=== PATIENT | male | born 1980 | race Caucasian/White ===

== ENCOUNTER → 2016-08-25 | Outpatient (CLI) | payer OTHER ==
[~2016-08-25] MED LIST: IBUP200C PO; MOBI7.5T10 PO; NAPR250T2 PO; augmentin PO; neurontin PO; oxycodone PO
--- NOTE | 2016-09-03 00:58 | ECWPNPC ---
PATIENT NAME: KRISTA SHOOK : 1980 GENDER: MALE VISIT DATE: 08/25/2016 DISCHARGE DATE: 08/25/16 1620 VISIT LOCKED DATE TIME: PHYSICIAN: SARA ASHRAF RESOURCE: SARA ASHRAF REASON FOR APPOINTMENT 1. LOW BACK PAIN HISTORY OF PRESENT ILLNESS HISTORY OF PRESENT ILLNESS: PAIN THE PATIENT DESCRIBES THE PAIN... 36 YEAR OLD MALE PATIENT WITH HISTORY OF CHRONIC LOW BACK PAIN. PATIENT DESCRIBES THE PAIN ACHING, BURNING, SHARP, STABBING, THROBBING, SHOOTING, AND HAVING IT ALL THE TIME WITH A PAIN SCORE OF 6/10. PATIENT IS GOING TO HAVE THE DCS TRIAL DONE ON 09/15/15. PATIENT IS CURRENTLY USING IBUPROFEN, TYLENOL, AND TRAMADOL WHICH THE PATIENT REPORTS HELPS WITH PAIN MANAGEMENT. AT THIS TIME THE PATIENT STATES THAT ANY PHYSICAL ACTIVITY INCREASES THE PAIN IN HIS LOWER BACK AND AT THIS TIME IT IS DIFFICULT TO FIND RELIEF FROM THE INJECTION. PATIENT DENIES UNEXPLAINABLE WEIGHT LOSS, FEVER, CHILLS, NEW CHANGES ON HIS URINARY OR BOWEL CONTROL. FALL RISK SCREENING: SCREENING :NO FALLS IN THE PAST YEAR CURRENT MEDICATIONS TAKING TRAMADOL HCL 50 MG TABLET 1 TABLET NEEDED ORALLY EVERY 8 HRS FOR PAIN MDD2 TAKING IBUPROFEN 800 MG TABLET 1 TABLET NEEDED ORALLY TWICE DAILY NEEDED TAKING VOLTAREN 25 MG TABLET DELAYED RELEASE 1 TABLET ORALLY BID NOT-TAKING GABAPENTIN 600 MG TABLET 1 TABLET ORALLY BID, NOTES: 1 WEEK AGO MEDICATION LIST REVIEWED AND RECONCILED WITH THE PATIENT PAST MEDICAL HISTORY GERD ALLERGIES SULFA (FOR ALLERGY USE ONLY): HIVES: ALLERGY SURGICAL HISTORY APPENDECTOMY AUG 2013 FAMILY HISTORY NO FAMILY HISTORY DOCUMENTED. SOCIAL HISTORY GENERAL: TOBACCO USE ARE YOU A:NONSMOKER LEARNING BARRIERS / SPECIAL NEEDS ORIENTED TO PLAN OF CARE: PATIENT, PAIN MANAGEMENT PATIENT, ORIENTED TO PLAN OF CARE: PATIENT, PAIN MANAGEMENT PATIENT. NEW PATIENT PAIN DIARY TODAY'S VISITNOTES FROM 0-10, WHAT LEVEL IS YOUR PAIN TODAY?0 PAIN CLINIC PFS, CLERGY, PUBLIC HEALTH REFERRALS PFS REFERRAL NEEDED?NO CLERGY REFERRAL NEEDED?NO PUBLIC HEALTH REFERRAL NEEDED?NO WAS THE PROVIDER NOTIFIED OF ANY PERTINENT INFO?NO PFS REFERRAL NEEDED?NO CLERGY REFERRAL NEEDED?NO PUBLIC HEALTH REFERRAL NEEDED?NO WAS THE PROVIDER NOTIFIED OF ANY PERTINENT INFO?NO HOSPITALIZATION/MAJOR DIAGNOSTIC PROCEDURE NO HOSPITALIZATION HISTORY. REVIEW OF SYSTEMS CONSTITUTIONAL: ANY CHANGE IN YOUR MEDICAL CONDITION? NO . CHILLS NO . FEVER NO . INFECTION: DO YOU HAVE NEW INFECTIONS? NO . DO YOU HAVE HISTORY OF MRSA? NO . MUSCULOSKELETAL: ANY NEW PATTERNS OF PAIN OR NUMBNESS? NO . GASTROENTEROLOGY: ANY NEW CHANGE IN BOWEL CONTROL? NO . GENITOURINARY: ANY NEW CHANGE IN BLADDER CONTROL? NO . IS THERE A CHANCE YOU COULD BE ? NO . HEMATOLOGY/LYMPH: DO YOU TAKE ANY BLOOD THINNERS? (FOR EXAMPLE- COUMADIN, PLAVIX, AGGRENOX, PLATEL, PRADAXA, OR XARELTO) NO . WHEN WAS YOUR LAST DOSE? DATE: TIME: . NEUROLOGY: HAVE YOU FALLEN IN THE PAST 6 MONTHS? NO . ANY NEW EXTREMITY NUMBNESS OR WEAKNESS? NO . CARDIOLOGY: DO YOU HAVE A PACEMAKER OR DEFIBRILLATOR? NO . RESPIRATORY: HAVE YOU BEEN SICK IN THE PAST WEEK? NO . FEVER NO . FLU LIKE SYMPTOMS? NO . COUGH NO . INTEGUMENTARY: DO YOU HAVE ANY RASHES OR OPEN SORES? NO . ALLERGIC/IMMUNO: ARE YOU ALLERGIC TO SHELLFISH OR IV DYE? NO . ANY NEW ALLERGIES? NO . PSYCHIATRIC: DO YOU HAVE THOUGHTS OF HURTING YOURSELF OR SOMEONE ELSE? NO . ARE YOU ABUSED, NEGLECTED, OR IN AN UNSAFE ENVIRONMENT? NO . ENDOCRINOLOGY: ARE YOU DIABETIC? NO . OTHER: DO YOU NEED ANY PRESCRIPTIONS? NO . IF YES, PLEASE LIST: ____ . ANY NEW PROBLEMS WITH YOUR MEDICATIONS? NO . WHEN DID YOU LAST EAT? ____ . WHEN DID YOU LAST DRINK? ____ . WHAT DID YOU LAST DRINK? ____ . NAME OF PERSON DRIVING YOU HOME? ____ . DO YOU HAVE ANY OTHER QUESTIONS OR CONCERNS NO . REVIEWED BY: PROVIDER: SARA ASHRAF MD . VITAL SIGNS WT 215 LBS, HT 73 IN, BMI 28.36 INDEX, BP 120/74 MM HG, HR 61 /MIN, RR 16 /MIN, TEMP 97.6 F, OXYGEN SAT % 98%, NA INITIALS SC 15:08, REVIEWED BY: STEPHEN [id number]. EXAMINATION : PATIENT IS ALERT O X 3 AND COOPERATIVE. THERE IS TENDERNESS IN THE LOWER BACK AND THE PARASPINAL MUSCLE GROUP SPECIALLY ON THE RIGHT SIDE. LEFT LEG IS A LITTLE WEAKER THEN THE RIGHT AT FLEXION. MRI OF THE LUMBOSACRAL SPINE DONE ON 08/20/2015 IS SHOWING FACET ARTHROPATHY CHANGES SPINAL STENOSIS THIS EXTRUSION AT L5-S1. LUNGS CLEAR. ASSESSMENTS INTERVERTEBRAL DISC DISORDERS WITH RADICULOPATHY, LUMBAR REGION - M51.16 (PRIMARY) INTERVERTEBRAL DISC DISORDERS WITH RADICULOPATHY, LUMBOSACRAL REGION - M51.17 TREATMENT INTERVERTEBRAL DISC DISORDERS WITH RADICULOPATHY, LUMBAR REGION START KEFLEX CAPSULE, 500 MG, 1 CAPSULE, ORALLY, THREE TIMES DAILY, 10 DAY(S), 30, REFILLS 0 REFILL TRAMADOL HCL TABLET, 50 MG, 1 TABLET NEEDED, ORALLY, EVERY 8 HRS FOR PAIN MDD2, 30 DAY(S), 50, REFILLS 0 NOTES: WE DISCUSSED SEVERAL ISSUES WITH MR. PATEL'S PAIN MANAGEMENT CASE. AT THIS TIME THE PATIENT WILL CONTINUE WITH THE SAME MEDICATION REGIME BEFORE. PATIENT WILL RECEIVE AN ANTIBIOTIC TO BE USED AFTER THE DCS TRIAL ONCE THE PATIENT IS HOME. WE DISCUSSED IN DETAIL WHAT TO EXPECT FROM THE TRIAL. PATIENT IS AWARE HE IS STAYING ONE NIGHT IN THE HOSPITAL AND NEEDS TO DISCONTINUE HIS PAIN MEDICATIONS DURING THE TRIAL. MR. SHOOK WILL RETURN THE FOLLOWING THURSDAY TO HAVE THE LEADS PULLED. PATIENT WAS ADVISED TO CALL WITH ANY QUESTIONS OR CONCERNS ABOUT THE TRIAL. INSTRUCTIONS WERE GIVEN, QUESTIONS WERE ANSWERED, PATIENT REPORTS UNDERSTANDING AND AGREES WITH THE PLAN. I, LADI BERNARDO, DOCUMENTED THE ABOVE INFORMATION ACTING A SCRIBE FOR DR. ASHRAF. I HAVE REVIEWED THE ABOVE DOCUMENT, WRITTEN BY LADI MEMBRENO AND I VERIFY THAT IT IS ACCURATE. PROCEDURE CODES FA211 ESTABILISHED PATIENT [facility] FACILITY CHARGE G8427 DOC MEDS VERIFIED W/PT OR RE G6524 PAIN ASSESS POS TOOL F/U PLAN DOC FOLLOW UP LEAD PULL AFTER TRIAL ELECTRONICALLY SIGNED BY SARA ASHRAF MD ON 09/02/2016 AT 08:22 PM EST DISCLAIMER : THIS IS A VISIT SUMMARY EXTRACTED FROM THE [employer] CHART. IT IS NOT A COPY OF THE [employer] PROGRESS NOTE. MTDD
== END ==
LOC: M PAIN 15:00
PROVIDERS: ATTEND Anesthesiology
DX: M51.16 Intervertebral disc disorders with radiculopathy, lumbar region (principal); M51.17 Intervertebral disc disorders with radiculopathy, lumbosacral region; Z79.891 Long term (current) use of opiate analgesic; Z79.899 Other long term (current) drug therapy; Z88.2 Allergy status to sulfonamides

== ENCOUNTER 2016-09-15 09:19 | Day surgery (SDC) | payer OTHER ==
[2016-09-15] VITALS (7 sets, daily range): BP systolic 109–136; BP diastolic 63–74
[~2016-09-15] VITALS: Ht 182.9 cm; Wt 95.3 kg
[~2016-09-15 09:19] MED LIST changes: +TRAM50TA2 PO
[2016-09-15] MEDS ORDERED: ceFAZolin SOD 1 GM in D5W MINI-BAG PLUS 50 ML IV ONE (09:30)
[2016-09-15] MEDS ORDERED: LR 1,000 ML IV SCH ×2 (09:30→13:15)
[2016-09-15] MEDS ORDERED: fentaNYL 100 MCG/2 ML INJECTION (J3010) As Ordered ONE ×2 (10:04→12:55)
[2016-09-15] MEDS ORDERED: LIDOCAINE 2% INJ 100 MG/5 ML SDV (FOR ANES.) As Ordered ONE (10:04)
[2016-09-15] MEDS ORDERED: MIDAZOLAM INJ 2 MG/2 ML VIAL (J2250) As Ordered ONE (10:04)
[2016-09-15] MEDS ORDERED: PROPOFOL 200 MG/20 ML VIAL As Ordered ONE (10:04)
[2016-09-15] MEDS ORDERED: DICL75TA PO (10:33)
[2016-09-15] MEDS ORDERED: IBUP800T23 PO (10:33)
[2016-09-15] MEDS ORDERED: LIDOCAINE W/EPINEPHRINE 1% 20ML VIAL As Ordered ONE (10:52)
[2016-09-15] MEDS ORDERED: LIDOCAINE W/EPINEPHRINE 1% 20ML VIAL XX ONE (11:44)
[2016-09-15] MEDS ORDERED: ONDANSETRON 4MG/2ML VIAL (J2405) As Ordered ONE (12:40)
[2016-09-15] MEDS: fentaNYL 100 MCG/2 ML INJECTION (J3010) IV PRN ×5 (12:55→14:11)
[2016-09-15] MEDS ORDERED: NORCO, ANEXSIA 5/325MG TABLET (HYDROcodone/ACETAMINOPHEN) PO PRN (13:15)
[2016-09-15] MEDS ORDERED: ONDANSETRON 4MG/2ML VIAL (J2405) IV PRN (13:15)
--- NOTE | 2016-09-15 14:18 | REP ---
Partial thoracic spine series: Four views. History: Dorsal column stimulator lead placement. 8 minutes 30 seconds of fluoroscopy time is reported. Findings: A sequence of four fluoroscopically obtained intraprocedural spot radiographs of the thoracic spine document dorsal column stimulator placement. Signed by Willian Aylaa MD 09/15/2016 03:20 P
[2016-09-15] MEDS: ceFAZolin SOD 1 GM in D5W MINI-BAG PLUS 50 ML IV SCH (15:42)
[2016-09-15] MEDS: NORCO, ANEXSIA 5/325MG TABLET (HYDROcodone/ACETAMINOPHEN) PO PRN ×2 (15:43→21:59)
[2016-09-15] MEDS: traMADol 50 MG TAB PO PRN (19:16)
[2016-09-16] VITALS: BP 130/57
[2016-09-16] MEDS: ceFAZolin SOD 1 GM in D5W MINI-BAG PLUS 50 ML IV SCH (01:56)
[2016-09-16] MEDS: traMADol 50 MG TAB PO PRN ×2 (01:57→08:44)
[2016-09-16 04:00] VITALS: BP 113/59
[2016-09-16] MEDS: NORCO, ANEXSIA 5/325MG TABLET (HYDROcodone/ACETAMINOPHEN) PO PRN (04:57)
[2016-09-16 08:00] VITALS: BP 109/65
[2016-09-16 09:14] VITALS: BP 109/65
--- NOTE | 2016-09-29 11:16 | RO ---
DATE OF PROCEDURE: 09/15/2016 PREPROCEDURE DIAGNOSIS: Lumbar radiculopathy. POSTPROCEDURE DIAGNOSIS: Lumbar radiculopathy. PROCEDURE: Spinal column stimulator trial. ANESTHESIA: Local with monitored anesthesia care. SURGEON: Emanuel Dave MD CARE PROCESS MANAGER: DESCRIPTION OF PROCEDURE: Mr. Delgado is a 36-year-old male patient with a history of chronic low back and leg pain. I evaluated the patient and reviewed the chart. We both agree on doing a spinal column stimulator trial today. The patient has tried medication management, interventional options, and the pain has persisted. The patient denies unexplained weight loss, fevers, chills, changes in his urinary or bowel control. After consent was taken, the patient was brought to the operating room and laid in the prone position. Thoracolumbar area was cleaned with Betadine solution and draped aseptically. Procedure was done under sterile conditions. Under fluoroscopic guidance, target was selected at the interlaminar level of T12-L1. Lidocaine was used to numb the skin and the subcutaneous tissue below it. A Epimed Tuohy needle, 17-gauge was advanced until the right lamina of L1 was touched and then by loss of resistance technique. The epidural space was reached 7 cm deep into the skin by loss of resistance technique. A 16 contact lead from [employer] was advanced in the posteromedial aspect of the epidural space at the level of T6 and T7. A decision was made to place a second lead. Target point was selected at the intralaminar level of L1-2. Lidocaine was used to numb the skin and the subcutaneous tissue below it. A second Epimed needle was advanced until the right lamina of L2 was touched and then by loss of resistance technique. The epidural space was reached 7 cm deep into the skin by loss of resistance technique. A second 16 contact lead from [employer] was advanced and placed parallel to the first one at the level of C6-C7. We attached the extension cables to the leads. They were attached to the computer system from [employer], and we started to do programming. This was a simple program of 30 minutes where we changed the contact needles, we changed the impedance, we changed the voltage. Stimulation was done to the patient and the patient agrees on the position of the leads. Final position was at the level of C6, C7, and T8. AP and lateral views were taken for future reference. Extension cables were removed. Stylets were removed. The leads were attached to the skin of the patient. The patient was sent to the recovery room where he was moving his extremities and doing well. There were no complications during the procedure. Trial will start today.
== END 2016-09-16 09:45 | disposition home or self-care (01) ==
LOC: M SDC 09:19 → M PED 13:45 → M SDC 09-16 09:45
PROVIDERS: ATTEND Anesthesiology
DX: M54.16 Radiculopathy, lumbar region (principal); Z88.2 Allergy status to sulfonamides; Z79.1 Long term (current) use of non-steroidal anti-inflammatories (NSAID)
CPT/HCPCS: 63650; 77002; 96374; 96376; C1897; J0690; J2250; J2405; J3010

== ENCOUNTER → 2016-09-19 | Outpatient (CLI) | payer OTHER ==
[~2016-09-19] MED LIST changes: +DICL75TA PO; +IBUP800T23 PO
--- NOTE | 2016-09-19 12:55 | REP ---
Partial lumbar spine series: 17 views. History: Dorsal column stimulator lead pole. 24 seconds of fluoroscopy time is reported. Findings: A sequence of 17 fluoroscopically obtained intraprocedural spot radiographs obtained with last minute hold technique document dorsal column stimulator lead manipulation and placement. Signed by Willian Ayala MD 09/19/2016 07:25 P
--- NOTE | 2016-09-27 00:31 | ECWPNPC ---
PATIENT NAME: KRISTA SHOOK : 1980 GENDER: MALE VISIT DATE: 09/19/2016 DISCHARGE DATE: 09/19/16 1146 VISIT LOCKED DATE TIME: PHYSICIAN: SARA ASHRAF RESOURCE: SARA ASHRAF REASON FOR APPOINTMENT 1. LOW BACK PAIN HISTORY OF PRESENT ILLNESS HISTORY OF PRESENT ILLNESS: PAIN THE PATIENT DESCRIBES THE PAIN... 36 YEAR OLD MALE PATIENT WITH HISTORY OF CHRONIC BACK PAIN. PATIENT DESCRIBES THE PAIN ACHING, SHARP, AND THROBBING WITH A PAIN SCORE OF 2/10. PATIENT RECEIVED THE DCS TRIAL ON THURSDAY AND REPORTS HAVING 80% RELIEF FROM THE TRIAL. MR. PATEL STATES THAT HE HAS GREAT RELIEF IN THE MORNING AND IS ABLE TO GET UP IN THE MORNINGS MUCH EASIER THEN BEFORE. PATIENT REPORTS NOT USING ANY PAIN MEDICATION THROUGHOUT THE TRIAL AND BELIEVES THE PERMANENT WILL GREATLY BENEFIT HIS CONDITION. PATIENT DENIES UNEXPLAINABLE WEIGHT LOSS, FEVER, CHILLS, NEW CHANGES ON HIS URINARY OR BOWEL CONTROL. FALL RISK SCREENING: SCREENING :NO FALLS IN THE PAST YEAR CURRENT MEDICATIONS TAKING IBUPROFEN 800 MG TABLET 1 TABLET NEEDED ORALLY TWICE DAILY NEEDED TAKING KEFLEX 500 MG CAPSULE 1 CAPSULE ORALLY THREE TIMES DAILY TAKING TRAMADOL HCL 50 MG TABLET 1 TABLET NEEDED ORALLY EVERY 8 HRS FOR PAIN MDD2 NOT-TAKING VOLTAREN 25 MG TABLET DELAYED RELEASE 1 TABLET ORALLY BID NOT-TAKING CYCLOBENZAPRINE HCL 10 MG TABLET 1 TABLET ORALLY THREE TIMES A DAY DISCONTINUED GABAPENTIN 600 MG TABLET 1 TABLET ORALLY BID, NOTES: 1 WEEK AGO MEDICATION LIST REVIEWED AND RECONCILED WITH THE PATIENT PAST MEDICAL HISTORY GERD ALLERGIES SULFA (FOR ALLERGY USE ONLY): HIVES: ALLERGY SURGICAL HISTORY APPENDECTOMY AUG 2013 FAMILY HISTORY NO FAMILY HISTORY DOCUMENTED. SOCIAL HISTORY GENERAL: TOBACCO USE ARE YOU A:NONSMOKER LEARNING BARRIERS / SPECIAL NEEDS ORIENTED TO PLAN OF CARE: PATIENT, PAIN MANAGEMENT PATIENT, ORIENTED TO PLAN OF CARE: PATIENT, PAIN MANAGEMENT PATIENT. NEW PATIENT PAIN DIARY TODAY'S VISITNOTES FROM 0-10, WHAT LEVEL IS YOUR PAIN TODAY?0 PAIN CLINIC PFS, CLERGY, PUBLIC HEALTH REFERRALS PFS REFERRAL NEEDED?NO CLERGY REFERRAL NEEDED?NO PUBLIC HEALTH REFERRAL NEEDED?NO WAS THE PROVIDER NOTIFIED OF ANY PERTINENT INFO?NO PFS REFERRAL NEEDED?NO CLERGY REFERRAL NEEDED?NO PUBLIC HEALTH REFERRAL NEEDED?NO WAS THE PROVIDER NOTIFIED OF ANY PERTINENT INFO?NO HOSPITALIZATION/MAJOR DIAGNOSTIC PROCEDURE NO HOSPITALIZATION HISTORY. REVIEW OF SYSTEMS CONSTITUTIONAL: ANY CHANGE IN YOUR MEDICAL CONDITION? NO . CHILLS NO . FEVER NO . INFECTION: DO YOU HAVE NEW INFECTIONS? NO . DO YOU HAVE HISTORY OF MRSA? NO . MUSCULOSKELETAL: ANY NEW PATTERNS OF PAIN OR NUMBNESS? NO . GASTROENTEROLOGY: ANY NEW CHANGE IN BOWEL CONTROL? NO . GENITOURINARY: ANY NEW CHANGE IN BLADDER CONTROL? NO . IS THERE A CHANCE YOU COULD BE ? NO . HEMATOLOGY/LYMPH: DO YOU TAKE ANY BLOOD THINNERS? (FOR EXAMPLE- COUMADIN, PLAVIX, AGGRENOX, PLATEL, PRADAXA, OR XARELTO) NO . WHEN WAS YOUR LAST DOSE? DATE: TIME: . NEUROLOGY: HAVE YOU FALLEN IN THE PAST 6 MONTHS? NO . ANY NEW EXTREMITY NUMBNESS OR WEAKNESS? NO . CARDIOLOGY: DO YOU HAVE A PACEMAKER OR DEFIBRILLATOR? NO . RESPIRATORY: HAVE YOU BEEN SICK IN THE PAST WEEK? NO . FEVER NO . FLU LIKE SYMPTOMS? NO . COUGH NO . INTEGUMENTARY: DO YOU HAVE ANY RASHES OR OPEN SORES? NO . ALLERGIC/IMMUNO: ARE YOU ALLERGIC TO SHELLFISH OR IV DYE? NO . ANY NEW ALLERGIES? NO . PSYCHIATRIC: DO YOU HAVE THOUGHTS OF HURTING YOURSELF OR SOMEONE ELSE? NO . ARE YOU ABUSED, NEGLECTED, OR IN AN UNSAFE ENVIRONMENT? NO . ENDOCRINOLOGY: ARE YOU DIABETIC? NO . OTHER: DO YOU NEED ANY PRESCRIPTIONS? NO . IF YES, PLEASE LIST: ____ . ANY NEW PROBLEMS WITH YOUR MEDICATIONS? NO . WHEN DID YOU LAST EAT? ____ . WHEN DID YOU LAST DRINK? ____ . WHAT DID YOU LAST DRINK? ____ . NAME OF PERSON DRIVING YOU HOME? ____ . DO YOU HAVE ANY OTHER QUESTIONS OR CONCERNS NO . REVIEWED BY: PROVIDER: SARA ASHRAF MD . VITAL SIGNS WT 220 LBS, HT 73 IN, BMI 29.02 INDEX, BP 138/82 MM HG, HR 68 /MIN, RR 16 /MIN, TEMP 96.0 F, OXYGEN SAT % 98, NA INITIALS TL 0937, REVIEWED BY: CM. EXAMINATION : PATIENT IS ALERT O X 3 AND COOPERATIVE. THERE IS TENDERNESS IN THE LOWER BACK AND THE PARASPINAL MUSCLE GROUP SPECIALLY ON THE RIGHT SIDE. LEFT LEG IS A LITTLE WEAKER THEN THE RIGHT AT FLEXION. MRI OF THE LUMBOSACRAL SPINE DONE ON 08/20/2015 IS SHOWING FACET ARTHROPATHY CHANGES SPINAL STENOSIS THIS EXTRUSION AT L5-S1. LEADS WERE PULLED OUT INTACT. 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 SHOOK'S PAIN MANAGEMENT CASE. AT THIS TIME THE PATIENT WILL CONTINUE WITH THE SAME MEDICATION REGIME BEFORE THE TRIAL. PATIENT STATES HAVING OVER 80% PAIN RELIEF FROM THE DCS TRIAL AND WOULD LIKE TO MOVE FORWARD WITH THE PERMANENT SOON POSSIBLE. PATIENT WILL RETURN TO THE CLINIC FOR PRE-OP PAPER AFTER AUTHORIZATION IS OBTAINED FOR THE PERMANENT. INSTRUCTIONS WERE GIVEN, QUESTIONS WERE ANSWERED, PATIENT REPORTS UNDERSTANDING AND AGREES WITH THE PLAN. I, LADI BERNARDO, DOCUMENTED THE ABOVE INFORMATION ACTING A SCRIBE FOR DR. ASHRAF. I HAVE REVIEWED THE ABOVE DOCUMENT, WRITTEN BY LADI BERNARDO SCRIBDilshad AND I VERIFY THAT IT IS ACCURATE. DIAGNOSTIC IMAGING [facility] FLUORO GUIDANCE (PAIN)[id number] PREVENTIVE MEDICINE PAIN CLINIC TEACHING: PROCEDURE TEACHING POST REMOVAL DORSAL COLUMN STIUMLATOR TRIAL LEADS INSTRUCTIONS REVIEWED WITH PT. VERBALIZED UNDERSTANDING.. FOLLOW UP 2 WEEKS ELECTRONICALLY SIGNED BY SARA ASHRAF MD ON 09/26/2016 AT 01:28 PM EST DISCLAIMER : THIS IS A VISIT SUMMARY EXTRACTED FROM THE [employer] CHART. IT IS NOT A COPY OF THE [employer] PROGRESS NOTE. [facility]
== END ==
LOC: M PAIN 09:40
PROVIDERS: ATTEND Anesthesiology
DX: G89.29 Other chronic pain (principal); M54.5 Low back pain; K21.9 Gastro-esophageal reflux disease without esophagitis; Z88.2 Allergy status to sulfonamides; Z79.891 Long term (current) use of opiate analgesic; Z79.1 Long term (current) use of non-steroidal anti-inflammatories (NSAID); Z79.899 Other long term (current) drug therapy

== ENCOUNTER → 2016-10-01 | Outpatient (CLI) | payer OTHER ==
--- NOTE | 2016-10-11 00:23 | ECWPNPC ---
PATIENT NAME: KRISTA SHOOK : 1980 GENDER: MALE VISIT DATE: 10/01/2016 DISCHARGE DATE: 10/01/16 1620 VISIT LOCKED DATE TIME: PHYSICIAN: SARA ASHRAF RESOURCE: SARA ASHRAF REASON FOR APPOINTMENT 1. LOW BACK PAIN HISTORY OF PRESENT ILLNESS HISTORY OF PRESENT ILLNESS: PAIN THE PATIENT DESCRIBES THE PAIN... 36 YEAR OLD MALE PATIENT WITH HISTORY OF CHRONIC LOW BACK PAIN. PATIENT DESCRIBES THE PAIN ACHING, BURNING, SHARP, STABBING, THROBBING, SHOOTING, AND HAVING IT ALL THE TIME WITH A PAIN SCORE OF 6/10. PATIENT IS MOVING FORWARD WITH THE DCS PERMANENT ON 10/13/16. PATIENT IS CURRENTLY USING IBUPROFEN, TYLENOL, AND TRAMADOL WHICH THE PATIENT REPORTS HELPS WITH PAIN MANAGEMENT. AT THIS TIME THE PATIENT STATES THAT ANY PHYSICAL ACTIVITY INCREASES THE PAIN IN HIS LOWER BACK AND AT THIS TIME IT IS DIFFICULT TO FIND RELIEF FROM THE INJECTION. PATIENT DENIES UNEXPLAINABLE WEIGHT LOSS, FEVER, CHILLS, NEW CHANGES ON HIS URINARY OR BOWEL CONTROL. FALL RISK SCREENING: SCREENING :NO FALLS IN THE PAST YEAR CURRENT MEDICATIONS TAKING IBUPROFEN 800 MG TABLET 1 TABLET NEEDED ORALLY TWICE DAILY NEEDED TAKING TRAMADOL HCL 50 MG TABLET 1 TABLET NEEDED ORALLY EVERY 8 HRS FOR PAIN MDD2 TAKING VOLTAREN 25 MG TABLET DELAYED RELEASE 1 TABLET ORALLY TWICE DAILY NEEDED NOT-TAKING CYCLOBENZAPRINE HCL 10 MG TABLET 1 TABLET ORALLY THREE TIMES A DAY DISCONTINUED KEFLEX 500 MG CAPSULE 1 CAPSULE ORALLY THREE TIMES DAILY MEDICATION LIST REVIEWED AND RECONCILED WITH THE PATIENT PAST MEDICAL HISTORY GERD ALLERGIES SULFA (FOR ALLERGY USE ONLY): HIVES: ALLERGY SURGICAL HISTORY APPENDECTOMY AUG 2013 FAMILY HISTORY NO FAMILY HISTORY DOCUMENTED. SOCIAL HISTORY GENERAL: TOBACCO USE ARE YOU A:NONSMOKER LEARNING BARRIERS / SPECIAL NEEDS ORIENTED TO PLAN OF CARE: PATIENT, PAIN MANAGEMENT PATIENT, ORIENTED TO PLAN OF CARE: PATIENT, PAIN MANAGEMENT PATIENT. NEW PATIENT PAIN DIARY TODAY'S VISITNOTES FROM 0-10, WHAT LEVEL IS YOUR PAIN TODAY?0 PAIN CLINIC PFS, CLERGY, PUBLIC HEALTH REFERRALS PFS REFERRAL NEEDED?NO CLERGY REFERRAL NEEDED?NO PUBLIC HEALTH REFERRAL NEEDED?NO WAS THE PROVIDER NOTIFIED OF ANY PERTINENT INFO?NO PFS REFERRAL NEEDED?NO CLERGY REFERRAL NEEDED?NO PUBLIC HEALTH REFERRAL NEEDED?NO WAS THE PROVIDER NOTIFIED OF ANY PERTINENT INFO?NO HOSPITALIZATION/MAJOR DIAGNOSTIC PROCEDURE NO HOSPITALIZATION HISTORY. REVIEW OF SYSTEMS CONSTITUTIONAL: ANY CHANGE IN YOUR MEDICAL CONDITION? YES, FELL OFF LADDER THE BEGINNING OF SEP. HAD XRAYS AT [employer] (-). SEEN BY PT WHO DETERMINED HE HAD A ROTATOR CUFF TEAR BACK OF RIGHT SHOULDER . CHILLS NO . FEVER NO . INFECTION: DO YOU HAVE NEW INFECTIONS? NO . DO YOU HAVE HISTORY OF MRSA? NO . MUSCULOSKELETAL: ANY NEW PATTERNS OF PAIN OR NUMBNESS? YES, RIGHT SHOULDER SINCE FALL . GASTROENTEROLOGY: ANY NEW CHANGE IN BOWEL CONTROL? NO . GENITOURINARY: ANY NEW CHANGE IN BLADDER CONTROL? NO . IS THERE A CHANCE YOU COULD BE ? NO . HEMATOLOGY/LYMPH: DO YOU TAKE ANY BLOOD THINNERS? (FOR EXAMPLE- COUMADIN, PLAVIX, AGGRENOX, PLATEL, PRADAXA, OR XARELTO) NO . WHEN WAS YOUR LAST DOSE? DATE: TIME: . NEUROLOGY: HAVE YOU FALLEN IN THE PAST 6 MONTHS? YES, FROM A LADDER IN THE BEGINNING OF SEP. . ANY NEW EXTREMITY NUMBNESS OR WEAKNESS? YES, RIGHT SHOULDER DUE TO INJURY FROM FALL. . CARDIOLOGY: DO YOU HAVE A PACEMAKER OR DEFIBRILLATOR? NO . RESPIRATORY: HAVE YOU BEEN SICK IN THE PAST WEEK? NO . FEVER NO . FLU LIKE SYMPTOMS? NO . COUGH NO . INTEGUMENTARY: DO YOU HAVE ANY RASHES OR OPEN SORES? NO . ALLERGIC/IMMUNO: ARE YOU ALLERGIC TO SHELLFISH OR IV DYE? NO . ANY NEW ALLERGIES? NO . PSYCHIATRIC: DO YOU HAVE THOUGHTS OF HURTING YOURSELF OR SOMEONE ELSE? NO . ARE YOU ABUSED, NEGLECTED, OR IN AN UNSAFE ENVIRONMENT? NO . ENDOCRINOLOGY: ARE YOU DIABETIC? NO . OTHER: DO YOU NEED ANY PRESCRIPTIONS? NO . IF YES, PLEASE LIST: ____ . ANY NEW PROBLEMS WITH YOUR MEDICATIONS? NO . WHEN DID YOU LAST EAT? ____ . WHEN DID YOU LAST DRINK? ____ . WHAT DID YOU LAST DRINK? ____ . NAME OF PERSON DRIVING YOU HOME? ____ . DO YOU HAVE ANY OTHER QUESTIONS OR CONCERNS NO . REVIEWED BY: PROVIDER: SARA ASHRAF MD . VITAL SIGNS WT 239.6 LBS, HT 73 IN, BMI 31.61 INDEX, BP 141/86 MM HG, HR 77 /MIN, RR 16 /MIN, TEMP 96.6 F, OXYGEN SAT % 97, NA INITIALS TL 1420, REVIEWED BY: STEPHEN. EXAMINATION : PATIENT IS ALERT O X 3 AND COOPERATIVE. THERE IS TENDERNESS IN THE LOWER BACK AND THE PARASPINAL MUSCLE GROUP SPECIALLY ON THE RIGHT SIDE. LEFT LEG IS A LITTLE WEAKER THEN THE RIGHT AT FLEXION. MRI OF THE LUMBOSACRAL SPINE DONE ON 08/20/2015 IS SHOWING FACET ARTHROPATHY CHANGES SPINAL STENOSIS THIS EXTRUSION AT L5-S1. 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 SHOOK'S PAIN MANAGEMENT CASE. AT THIS TIME THE PATIENT WILL CONTINUE WITH THE SAME MEDICATION REGIME BEFORE. PATIENT WILL HAVE THE PERMANENT PLACED ON 10/13/16. PATIENT IS AWARE OF THE POTENTIAL COMPLICATIONS AND WOULD LIKE TO MOVE FORWARD WITH THE PERMANENT. MR. SHOOK WAS ADVISED TO TAKE 6 WEEKS OFF OF WORK AND TO NOT DO ANY STRENUOUS ACTIVITIES UNTIL 2-3 MONTHS AFTER THE PLACEMENT. INSTRUCTIONS WERE GIVEN, QUESTIONS WERE ANSWERED, PATIENT REPORTS UNDERSTANDING AND AGREES WITH THE PLAN. I, LADI BERNARDO, DOCUMENTED THE ABOVE INFORMATION ACTING A SCRIBE FOR DR. ASHRAF. I HAVE REVIEWED THE ABOVE DOCUMENT, WRITTEN BY LADI MEMBRENO AND I VERIFY THAT IT IS ACCURATE. PROCEDURE CODES FA211 ESTABILISHED PATIENT [facility] FACILITY CHARGE G8427 DOC MEDS VERIFIED W/PT OR RE G8730 PAIN ASSESS POS TOOL F/U PLAN DOC DISPOSITION & COMMUNICATION FOLLOW UP PERM ELECTRONICALLY SIGNED BY SARA ASHRAF MD ON 10/10/2016 AT 07:11 AM EST DISCLAIMER : THIS IS A VISIT SUMMARY EXTRACTED FROM THE [employer] CHART. IT IS NOT A COPY OF THE [employer] PROGRESS NOTE. PATRICIO
== END ==
LOC: M PAIN 14:20
PROVIDERS: ATTEND Anesthesiology
DX: Z09 Encounter for follow-up examination after completed treatment for conditions other than malignant neoplasm (principal); G89.29 Other chronic pain; M51.16 Intervertebral disc disorders with radiculopathy, lumbar region; M51.17 Intervertebral disc disorders with radiculopathy, lumbosacral region; K21.9 Gastro-esophageal reflux disease without esophagitis; Z88.2 Allergy status to sulfonamides; M47.816 Spondylosis without myelopathy or radiculopathy, lumbar region; M47.817 Spondylosis without myelopathy or radiculopathy, lumbosacral region; M79.1 Myalgia; Z79.1 Long term (current) use of non-steroidal anti-inflammatories (NSAID); Z79.891 Long term (current) use of opiate analgesic; Z79.899 Other long term (current) drug therapy

== ENCOUNTER 2016-10-13 09:24 | Day surgery (SDC) | payer OTHER ==
[2016-10-13] VITALS (8 sets, daily range): BP systolic 132–144; BP diastolic 74–85
[~2016-10-13] VITALS: Ht 182.9 cm; Wt 97.5 kg
[~2016-10-13 09:24] MED LIST changes: +LIDOCAINE 2% INJ 100 MG/5 ML SDV (FOR ANES.) As Ordered ONE; +MIDAZOLAM INJ 2 MG/2 ML VIAL (J2250) As Ordered ONE; +PROPOFOL 200 MG/20 ML VIAL As Ordered ONE; +fentaNYL 100 MCG/2 ML INJECTION (J3010) As Ordered ONE
[2016-10-13] MEDS ORDERED: LR 1,000 ML IV SCH ×2 (10:00→17:00)
[2016-10-13] MEDS ORDERED: ceFAZolin SOD 1 GM in D5W MINI-BAG PLUS 50 ML IV ONE ×2 (10:00→19:00)
[2016-10-13] MEDS ORDERED: LIDOCAINE W/EPINEPHRINE 1% 20ML VIAL As Ordered ONE (13:23)
[2016-10-13] MEDS ORDERED: THROMBIN SOLN 20,000 UNITS KIT As Ordered ONE (13:23)
[2016-10-13] MEDS ORDERED: BACITRACIN PWD 50,000 UNITS VIAL As Ordered ONE (13:23)
[2016-10-13] MEDS ORDERED: MIDAZOLAM INJ 2 MG/2 ML VIAL (J2250) As Ordered ONE (13:45)
[2016-10-13] MEDS ORDERED: THROMBIN SOLN 20,000 UNITS KIT XX ONE (14:17)
[2016-10-13] MEDS ORDERED: SODIUM CHLORIDE 0.9% 250 ML XX ONE (14:17)
[2016-10-13] MEDS ORDERED: BACITRACIN PWD 50,000 UNITS VIAL IR ONE (14:17)
[2016-10-13] MEDS ORDERED: LIDOCAINE W/EPINEPHRINE 1% 20ML VIAL XX ONE (14:17)
[2016-10-13] MEDS ORDERED: PROPOFOL 200 MG/20 ML VIAL As Ordered ONE (14:26)
[2016-10-13] MEDS ORDERED: ONDANSETRON 4MG/2ML VIAL (J2405) As Ordered ONE (14:26)
[2016-10-13] MEDS ORDERED: HYDROmorphone HCL 2 MG/ML 1ML VIAL (J1170) As Ordered ONE (15:26)
[2016-10-13] MEDS ORDERED: oxyCODONE 5MG TAB PO PRN (17:00)
[2016-10-13] MEDS ORDERED: MEPERIDINE INJ 25 MG/ML VIAL (J2175) IV PRN (17:00)
[2016-10-13] MEDS ORDERED: ONDANSETRON 4MG/2ML VIAL (J2405) IV PRN (17:00)
[2016-10-13] MEDS ORDERED: METOCLOPRAMIDE INJ 10MG/2ML VIAL (J2765) IV PRN (17:00)
[2016-10-13] MEDS ORDERED: fentaNYL 100 MCG/2 ML INJECTION (J3010) IV PRN (17:00)
[2016-10-13] MEDS ORDERED: PERCOCET 5MG/325MG TAB PO PRN (17:00)
--- NOTE | 2016-10-13 18:23 | REP ---
C-ARM VIEWS THORACIC SPINE REGION: Four C-ARM views are performed during placement of the dorsal column stimulator. There is a clinical history of pain. Dorsal column stimulator leads are present, the cephalic tips of which are in the region of the lower thorax. 7 minutes and 56 seconds of fluoroscopic time was utilized for the procedure. Signed by Gurvinder Frausto MD 10/14/2016 04:48 P
[2016-10-13] MEDS: oxyCODONE 5MG TAB PO PRN (21:17)
[2016-10-14] VITALS: BP 135/75
[2016-10-14] MEDS: ONDANSETRON 4MG/2ML VIAL (J2405) IV PRN ×2 (00:13→08:31)
[2016-10-14] MEDS: oxyCODONE 5MG TAB PO PRN ×2 (01:20→05:55)
[2016-10-14] MEDS ORDERED: ceFAZolin SOD 1 GM in D5W MINI-BAG PLUS 50 ML IV ONE (03:00)
[2016-10-14 04:00] VITALS: BP 130/74
[2016-10-14 09:00] VITALS: BP 122/69
--- NOTE | 2016-10-23 07:19 | RO ---
DATE OF PROCEDURE: 10/13/2016 PREOPERATIVE DIAGNOSIS: Lumbar radiculopathy. POSTOPERATIVE DIAGNOSIS: Lumbar radiculopathy. PROCEDURE: Spinal column stimulator implant. SURGEON: Emanuel Dave MD PRISM MEASURER: HARRY Palacios ANESTHESIA: Local with monitored anesthesia care. PREOPERATIVE NOTE: Mr. Delgado is a 36-year-old male patient with history of chronic low back and leg pain. Patient has done medication management, interventional therapy, physical therapy, and the pain has persisted. A spinal column stimulator trial was done, which provided to the patient more than 80% pain relief according to the patient. He expressed that he wanted to have a spinal column stimulator implant, and he is in the operating room today for such implant. Patient denies unexplainable weight loss, fevers, chills, changes in his urinary or bowel control. DESCRIPTION OF PROCEDURE: After consent was taken, patient was brought to the procedure room and placed in the prone position. Thoracolumbar area was cleaned with Betadine solution and DuraPrep and draped aseptically. Procedure was done under sterile conditions. Patient received cefazolin 1 gram intravenously (IV). Target point was selected at the area of L1, L2, and L3. An incision was made approximately from T12-L1 to L2, and I exposed the thoracolumbar fascia with the assistance of a Bovie and surgical instruments. After the thoracolumbar fascia was exposed, then the target was selected at the right lamina of L1. With the special epidural needle for the Infinion System provided by [employer], I touched the right lamina of L1 and then advanced the needle to the epidural space with the assistance of the introducer, which was used tapping with the needle. We reached the epidural space approximately 7 cm deep into the skin. Then, a 16-contact lead from the Infinion CX system from [employer] was advanced through the posteromedial aspect of the epidural space until we reached the level of T7. A decision was made to put a second lead in this location as during the trial. The target was selected at the left lamina of L1. I used a second special epidural needle from [employer] and touched the left lamina of L1 and then, with the introducer, I tapped through the needle until I reached the epidural space, also approximately 7 cm deep into the skin by the loss of resistance technique; and then I advanced a second 16 contact Infinion CX lead through this needle to the posteromedial aspect of the epidural space, and I put both leads parallel to each other at the level of T7 and T8. Then, the leads were attached to extension cables, which were attached to the computer to start programming. I performed a simple programming (it took approximately 30 minutes) where I changed the position of the leads, changing the voltage used and the contact used until the patient expressed satisfaction with the stimulation. It was decided to leave the leads at the level of T7, T8 , and T9. At that point, Clik anchors from [employer] were attached to the thoracolumbar fascia using also the suture system provided by [employer]. When they were attached to the thoracolumbar fascia, I checked again the position of the leads and then I screwed the leads to these special Clik anchors, securing the position of the leads in the selected area. Then, I started to do the pocket for the battery, which was done approximately 1.5 cm deep into the skin at the area avoiding the costal ribs and the Iliac border as verified under X-Ray. After the pocket was created, a tunnel was done between the midline incision and the pocket incision; and the leads were advanced through that tunnel to the battery site. I attached the leads to the battery, and then I checked the impedance of the system. Then, a decision was made to close the midline incision and the battery incision. I used first Vicryl #0 with inverted sutures interrupted. The superior layers were tied with Vicryl #3-0, and finally the skin was closed with Dermabond surgical glue. There was no evidence of blood, paraesthesia, or any complication during the procedure. HARRY Palacios, assisted me, especially in the battery closure and in the incision closure during the case. There were no complications. Patient was sent to the recovery room for observation. PATRICIO
== END 2016-10-14 10:55 | disposition home or self-care (01) ==
LOC: M SDC 09:24 → M PED 17:59 → M SDC 10-14 10:55
PROVIDERS: ATTEND Anesthesiology
DX: M54.16 Radiculopathy, lumbar region (principal); M79.604 Pain in right leg; M79.605 Pain in left leg; R06.83 Snoring; Z88.2 Allergy status to sulfonamides; Z79.899 Other long term (current) drug therapy
CPT/HCPCS: 63655; 63685; 77002; 96374; C1787; C1820; J0690; J1170; J2250; J2405; J3010; L9900

== ENCOUNTER → 2016-10-20 | Outpatient (CLI) | payer OTHER ==
[~2016-10-20] MED LIST changes: -LIDOCAINE 2% INJ 100 MG/5 ML SDV (FOR ANES.) As Ordered ONE; -MIDAZOLAM INJ 2 MG/2 ML VIAL (J2250) As Ordered ONE; -PROPOFOL 200 MG/20 ML VIAL As Ordered ONE; -fentaNYL 100 MCG/2 ML INJECTION (J3010) As Ordered ONE
--- NOTE | 2016-10-28 00:31 | ECWPNPC ---
PATIENT NAME: KRISTA SHOOK : 1980 GENDER: MALE VISIT DATE: 10/20/2016 DISCHARGE DATE: 10/20/16 1042 VISIT LOCKED DATE TIME: PHYSICIAN: SARA ASHRAF RESOURCE: SARA ASHRAF REASON FOR APPOINTMENT 1. LOW BACK PAIN HISTORY OF PRESENT ILLNESS HISTORY OF PRESENT ILLNESS: PAIN THE PATIENT DESCRIBES THE PAIN... 36 YEAR OLD MALE PATIENT WITH HISTORY OF CHRONIC LOW BACK PAIN. PATIENT DESCRIBES THE PAIN ACHING, TENDER, SHOOTING, AND HAVING IT ALL THE TIME WITH A PAIN SCORE OF 7/10. PATIENT RECEIVED A PERMANENT DCS ON 10/13/16 AND PATIENT STATES THAT IT IS HELPING SIGNIFICANTLY WITH HIS PAIN. MR. SHOOK REPORTS HAVING PAIN FROM HIS INCISIONS BUT IS USING OXYCODONE TO AID IN POST OPERATIVE PAIN RELIEF AT THIS TIME. PATIENT DENIES UNEXPLAINABLE WEIGHT LOSS, FEVER, CHILLS, NEW CHANGES ON HIS URINARY OR BOWEL CONTROL. FALL RISK SCREENING: SCREENING :NO FALLS IN THE PAST YEAR CURRENT MEDICATIONS TAKING IBUPROFEN 800 MG TABLET 1 TABLET NEEDED ORALLY TWICE DAILY NEEDED TAKING TRAMADOL HCL 50 MG TABLET 1 TABLET NEEDED ORALLY EVERY 8 HRS FOR PAIN MDD2 TAKING VOLTAREN 25 MG TABLET DELAYED RELEASE 1 TABLET ORALLY TWICE DAILY NEEDED TAKING OXYCODONE HCL 5 MG TABLET 1 TO 2 TABLET ORALLY EVERY 6 HRS PRN FOR PAIN MDD6, NOTES: NEVER GOT NOT-TAKING CYCLOBENZAPRINE HCL 10 MG TABLET 1 TABLET ORALLY THREE TIMES A DAY MEDICATION LIST REVIEWED AND RECONCILED WITH THE PATIENT PAST MEDICAL HISTORY GERD ALLERGIES SULFA (FOR ALLERGY USE ONLY): HIVES: ALLERGY SURGICAL HISTORY APPENDECTOMY AUG 2013 DCS TRIAL 09/15/16 DCS PERMANENT 10/14/16 FAMILY HISTORY NO FAMILY HISTORY DOCUMENTED. SOCIAL HISTORY GENERAL: TOBACCO USE ARE YOU A:NONSMOKER LEARNING BARRIERS / SPECIAL NEEDS ORIENTED TO PLAN OF CARE: PATIENT, PAIN MANAGEMENT PATIENT, ORIENTED TO PLAN OF CARE: PATIENT, PAIN MANAGEMENT PATIENT. NEW PATIENT PAIN DIARY TODAY'S VISITNOTES FROM 0-10, WHAT LEVEL IS YOUR PAIN TODAY?0 PAIN CLINIC PFS, CLERGY, PUBLIC HEALTH REFERRALS PFS REFERRAL NEEDED?NO CLERGY REFERRAL NEEDED?NO PUBLIC HEALTH REFERRAL NEEDED?NO WAS THE PROVIDER NOTIFIED OF ANY PERTINENT INFO?NO PFS REFERRAL NEEDED?NO CLERGY REFERRAL NEEDED?NO PUBLIC HEALTH REFERRAL NEEDED?NO WAS THE PROVIDER NOTIFIED OF ANY PERTINENT INFO?NO HOSPITALIZATION/MAJOR DIAGNOSTIC PROCEDURE NO HOSPITALIZATION HISTORY. REVIEW OF SYSTEMS CONSTITUTIONAL: ANY CHANGE IN YOUR MEDICAL CONDITION? NO . CHILLS NO . FEVER NO . INFECTION: DO YOU HAVE NEW INFECTIONS? NO . DO YOU HAVE HISTORY OF MRSA? NO . MUSCULOSKELETAL: ANY NEW PATTERNS OF PAIN OR NUMBNESS? NO . GASTROENTEROLOGY: ANY NEW CHANGE IN BOWEL CONTROL? NO . GENITOURINARY: ANY NEW CHANGE IN BLADDER CONTROL? NO . IS THERE A CHANCE YOU COULD BE ? NO . HEMATOLOGY/LYMPH: DO YOU TAKE ANY BLOOD THINNERS? (FOR EXAMPLE- COUMADIN, PLAVIX, AGGRENOX, PLATEL, PRADAXA, OR XARELTO) NO . WHEN WAS YOUR LAST DOSE? DATE: TIME: . NEUROLOGY: HAVE YOU FALLEN IN THE PAST 6 MONTHS? YES FELL IN JUL. INJURING RIGHT SHOULDER--ROTATOR CUFF TEAR . ANY NEW EXTREMITY NUMBNESS OR WEAKNESS? NO . CARDIOLOGY: DO YOU HAVE A PACEMAKER OR DEFIBRILLATOR? NO . RESPIRATORY: HAVE YOU BEEN SICK IN THE PAST WEEK? NO . FEVER NO . FLU LIKE SYMPTOMS? NO . COUGH NO . INTEGUMENTARY: DO YOU HAVE ANY RASHES OR OPEN SORES? NO . ALLERGIC/IMMUNO: ARE YOU ALLERGIC TO SHELLFISH OR IV DYE? NO . ANY NEW ALLERGIES? NO . PSYCHIATRIC: DO YOU HAVE THOUGHTS OF HURTING YOURSELF OR SOMEONE ELSE? NO . ARE YOU ABUSED, NEGLECTED, OR IN AN UNSAFE ENVIRONMENT? NO . ENDOCRINOLOGY: ARE YOU DIABETIC? NO . OTHER: DO YOU NEED ANY PRESCRIPTIONS? NO . IF YES, PLEASE LIST: ____ . ANY NEW PROBLEMS WITH YOUR MEDICATIONS? NO . WHEN DID YOU LAST EAT? ____ . WHEN DID YOU LAST DRINK? ____ . WHAT DID YOU LAST DRINK? ____ . NAME OF PERSON DRIVING YOU HOME? ____ . DO YOU HAVE ANY OTHER QUESTIONS OR CONCERNS DDIN'T REALIZE HE HAD OXYCODONE ORDERED SO NEVER PICKED IT UPFORMAL APPEAL FOR MED REVIEW BOARD IS 09/25--IN [place]ATR[place], DC HE WOULD BE FLYING OUT 09/24--? OKAY TO FLY . REVIEWED BY: PROVIDER: . VITAL SIGNS WT 250 LBS, HT 73 IN, BMI 32.98 INDEX, BP 133/88 MM HG, HR 62 /MIN, RR 16 /MIN, TEMP 96.0 F, OXYGEN SAT % 99, NA INITIALS TL 0928, REVIEWED BY: STEPHEN. EXAMINATION : PATIENT IS ALERT O X 3 AND COOPERATIVE. THERE IS TENDERNESS IN THE LOWER BACK AND THE PARASPINAL MUSCLE GROUP SPECIALLY ON THE RIGHT SIDE. LEFT LEG IS A LITTLE WEAKER THEN THE RIGHT AT FLEXION. MRI OF THE LUMBOSACRAL SPINE DONE ON 08/20/2015 IS SHOWING FACET ARTHROPATHY CHANGES SPINAL STENOSIS THIS EXTRUSION AT L5-S1. 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 SHOOK'S PAIN MANAGEMENT CASE. AT THIS TIME THE PATIENT WILL CONTINUE WITH THE SAME MEDICATION REGIME BEFORE. PATIENT DENIES ABUSE OF ANY MEDICATION, DENIES USE OF ILLEGAL SUBSTANCE, AND STATES HE IS ONLY USING THE MEDICATION FOR PAIN MANAGEMENT. MR. SHOOK STATES THAT HE IS RECEIVING PAIN RELIEF FROM THE DCS, SCARS ARE HEALING AND AT THIS TIME THE PATIENT REPORTS DOING VERY WELL. PATIENT WILL RETURN TO THE CLINIC IN 1 MONTH TO BE RE-EVALUATED. PATIENT WAS ADVISED TO CALL WITH ANY QUESTIONS, CONCERNS, OR IF THE PAIN WORSENS. INSTRUCTIONS WERE GIVEN, QUESTIONS WERE ANSWERED, PATIENT REPORTS UNDERSTANDING AND AGREES WITH THE PLAN. I, LADI BERNARDO, DOCUMENTED THE ABOVE INFORMATION ACTING A SCRIBE FOR DR. ASHRAF. I HAVE REVIEWED THE ABOVE DOCUMENT, WRITTEN BY LADI MEMBRENO AND I VERIFY THAT IT IS ACCURATE. PROCEDURE CODES G8730 PAIN ASSESS POS TOOL F/U PLAN DOC G8427 DOC MEDS VERIFIED W/PT OR RE DISPOSITION & COMMUNICATION FOLLOW UP 4 WEEKS ELECTRONICALLY SIGNED BY SARA ASHRAF MD ON 10/26/2016 AT 11:32 AM EDT DISCLAIMER : THIS IS A VISIT SUMMARY EXTRACTED FROM THE [employer] CHART. IT IS NOT A COPY OF THE [employer] PROGRESS NOTE. PATRICIO
== END ==
LOC: M PAIN 09:20
PROVIDERS: ATTEND Anesthesiology
DX: Z09 Encounter for follow-up examination after completed treatment for conditions other than malignant neoplasm (principal); G89.29 Other chronic pain; M51.16 Intervertebral disc disorders with radiculopathy, lumbar region; M51.17 Intervertebral disc disorders with radiculopathy, lumbosacral region; K21.9 Gastro-esophageal reflux disease without esophagitis; Z88.2 Allergy status to sulfonamides; Z79.1 Long term (current) use of non-steroidal anti-inflammatories (NSAID); Z79.891 Long term (current) use of opiate analgesic; Z79.899 Other long term (current) drug therapy

== ENCOUNTER → 2016-11-19 | Outpatient (CLI) | payer OTHER ==
--- NOTE | 2016-11-27 02:18 | ECWPNPC ---
PATIENT NAME: KRISTA SHOOK : 1980 GENDER: MALE VISIT DATE: 11/19/2016 DISCHARGE DATE: 11/19/16 1420 VISIT LOCKED DATE TIME: PHYSICIAN: SARA ASHRAF RESOURCE: SARA ASHRAF REASON FOR APPOINTMENT 1. BACK PAIN HISTORY OF PRESENT ILLNESS HISTORY OF PRESENT ILLNESS: PAIN THE PATIENT DESCRIBES THE PAIN... 36 YEAR OLD MALE PATIENT WITH HISTORY OF CHRONIC LOW BACK PAIN. PATIENT DESCRIBES THE PAIN ACHING, SHARP, STABBING, SHOOTING, AND HAVING IT ALL THE TIME WITH A PAIN SCORE OF 7/10. PATIENT RECEIVED A DCS ON 10/13/16 AND STATES THAT HIS LEG PAIN IS COMPLETELY GONE BUT HE IS STILL HAVING LOWER BACK PAIN. PATIENT IS CURRENTLY USING IBUPROFEN, TRAMADOL, VOLTAREN GEL, AND OXYCODONE NEEDED. PATIENT STATES THAT HE IS USING THE MEDICATION ONLY NEEDED AND IT HELPS KEEP HIM FUNCTIONAL AND MOBILE. PATIENT STATES THAT HE IS UNSURE HOW WELL THE DCS IS WORKING AT THIS TIME BECAUSE HE HASN'T BEEN ABLE TO RETURN TO HIS NORMAL ACTIVITIES SUCH WEIGHT LIFTING AND GOLFING. PATIENT DENIES UNEXPLAINABLE WEIGHT LOSS, FEVER, CHILLS, NEW CHANGES ON HIS URINARY OR BOWEL CONTROL. FALL RISK SCREENING: SCREENING :NO FALLS IN THE PAST YEAR CURRENT MEDICATIONS TAKING IBUPROFEN 800 MG TABLET 1 TABLET NEEDED ORALLY TWICE DAILY NEEDED TAKING TRAMADOL HCL 50 MG TABLET 1 TABLET NEEDED ORALLY EVERY 8 HRS FOR PAIN MDD2 TAKING VOLTAREN 25 MG TABLET DELAYED RELEASE 1 TABLET ORALLY TWICE DAILY NEEDED TAKING OXYCODONE HCL 5 MG TABLET 1 TO 2 TABLET ORALLY EVERY 6 HRS PRN FOR PAIN MDD6 NOT-TAKING CYCLOBENZAPRINE HCL 10 MG TABLET 1 TABLET ORALLY THREE TIMES A DAY MEDICATION LIST REVIEWED AND RECONCILED WITH THE PATIENT PAST MEDICAL HISTORY GERD ALLERGIES SULFA (FOR ALLERGY USE ONLY): HIVES: ALLERGY SURGICAL HISTORY APPENDECTOMY AUG 2013 DCS TRIAL 09/15/16 DCS PERMANENT 10/14/16 FAMILY HISTORY NO FAMILY HISTORY DOCUMENTED. SOCIAL HISTORY GENERAL: PAIN CLINIC PFS, CLERGY, PUBLIC HEALTH REFERRALS PFS REFERRAL NEEDED?NO CLERGY REFERRAL NEEDED?NO PUBLIC HEALTH REFERRAL NEEDED?NO WAS THE PROVIDER NOTIFIED OF ANY PERTINENT INFO?YES PATIENT: ____. HOSPITALIZATION/MAJOR DIAGNOSTIC PROCEDURE NO HOSPITALIZATION HISTORY. REVIEW OF SYSTEMS CONSTITUTIONAL: ANY CHANGE IN YOUR MEDICAL CONDITION? NO . CHILLS NO . FEVER NO . INFECTION: DO YOU HAVE NEW INFECTIONS? NO . DO YOU HAVE HISTORY OF MRSA? NO . MUSCULOSKELETAL: ANY NEW PATTERNS OF PAIN OR NUMBNESS? NO . GASTROENTEROLOGY: ANY NEW CHANGE IN BOWEL CONTROL? NO . GENITOURINARY: ANY NEW CHANGE IN BLADDER CONTROL? NO . IS THERE A CHANCE YOU COULD BE ? NO . HEMATOLOGY/LYMPH: DO YOU TAKE ANY BLOOD THINNERS? (FOR EXAMPLE- COUMADIN, PLAVIX, AGGRENOX, PLATEL, PRADAXA, OR XARELTO) NO . WHEN WAS YOUR LAST DOSE? DATE: TIME: . NEUROLOGY: HAVE YOU FALLEN IN THE PAST 6 MONTHS? NO . ANY NEW EXTREMITY NUMBNESS OR WEAKNESS? NO . CARDIOLOGY: DO YOU HAVE A PACEMAKER OR DEFIBRILLATOR? NO . RESPIRATORY: HAVE YOU BEEN SICK IN THE PAST WEEK? NO . FEVER NO . FLU LIKE SYMPTOMS? NO . COUGH NO . INTEGUMENTARY: DO YOU HAVE ANY RASHES OR OPEN SORES? NO . ALLERGIC/IMMUNO: ARE YOU ALLERGIC TO SHELLFISH OR IV DYE? NO . ANY NEW ALLERGIES? NO . PSYCHIATRIC: DO YOU HAVE THOUGHTS OF HURTING YOURSELF OR SOMEONE ELSE? NO . ARE YOU ABUSED, NEGLECTED, OR IN AN UNSAFE ENVIRONMENT? NO . ENDOCRINOLOGY: ARE YOU DIABETIC? NO . OTHER: DO YOU NEED ANY PRESCRIPTIONS? NO . IF YES, PLEASE LIST: ____ . ANY NEW PROBLEMS WITH YOUR MEDICATIONS? NO . WHEN DID YOU LAST EAT? ____ . WHEN DID YOU LAST DRINK? ____ . WHAT DID YOU LAST DRINK? ____ . NAME OF PERSON DRIVING YOU HOME? ____ . DO YOU HAVE ANY OTHER QUESTIONS OR CONCERNS PT STATES THAT THE DCS IS NOT HAVING AN IMPACT ON REDUCING THE AMOUNT OF PAIN. PAIN REMAINS IN LOWER BACK 02/23 . REVIEWED BY: PROVIDER: SARA ASHRAF MD . VITAL SIGNS WT 215.0 LBS, HT 73 IN, BMI 28.36 INDEX, BP 133/77 MM HG, HR 73 /MIN, RR 16 /MIN, TEMP 97.7 F, OXYGEN SAT % 96%, SAFE IN ENV? (Y/N) Y, NA INITIALS TL 1247, REVIEWED BY: BLACK. EXAMINATION : PATIENT IS ALERT O X 3 AND COOPERATIVE. THERE IS TENDERNESS IN THE LOWER BACK AND THE PARASPINAL MUSCLE GROUP SPECIALLY ON THE RIGHT SIDE. LEFT LEG IS A LITTLE WEAKER THEN THE RIGHT AT FLEXION. MRI OF THE LUMBOSACRAL SPINE DONE ON 08/20/2015 IS SHOWING FACET ARTHROPATHY CHANGES SPINAL STENOSIS THIS EXTRUSION AT L5-S1. INCISION PINK. 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 SHOOK'S PAIN MANAGEMENT CASE. PATIENT WILL CONTINUE WITH THE SAME MEDICATION REGIME BEFORE. PATIENT DENIES ABUSE OF ANY MEDICATION, DENIES USE OF ILLEGAL SUBSTANCES, AND STATES THAT HE IS ONLY USING THE MEDICATION FOR PAIN MANAGEMENT. PATIENT WILL RECEIVE A 3 MONTH REFILL DUE TO THE PATIENT MOVING TO [place] IN THE NEXT MONTH. PATIENT IS AWARE THAT THIS MEDICATION IS TO LAST HIM UNTIL HE FINDS ANOTHER PROVIDER AND ONCE THE PATIENT HAS LEFT THE STATE THAT HE WILL NEED TO FIND A PROVIDER IN THE STATE I DO NOT PRESCRIBE MEDICATION OVER THE PHONE. PATIENT STATES THAT HE IS DOING FAIRLY WELL FROM THE DCS IMPLANT BUT REPORTS STILL HAVING A LOT OF PAIN IN THE LOWER BACK AREA. PATIENT EXPRESSES THAT HE WOULD LIKE TO HAVE ANOTHER REPROGRAMMING DONE BY [employer] TO SEE IF THAT WILL HELP THE LOW BACK PAIN. PATIENT WILL RETURN TO THE CLINIC IN 3 WEEKS BEFORE HE LEAVES. INSTRUCTIONS WERE GIVEN, QUESTIONS WERE ANSWERED, PATIENT REPORTS UNDERSTANDING AND AGREES WITH THE PLAN. I, LADI BERNARDO, DOCUMENTED THE ABOVE INFORMATION ACTING A SCRIBE FOR DR. ASHRAF. I HAVE REVIEWED THE ABOVE DOCUMENT, WRITTEN BY LADI MEMBRENO AND I VERIFY THAT IT IS ACCURATE. PROCEDURE CODES G8427 DOC MEDS VERIFIED W/PT OR RE G8730 PAIN ASSESS POS TOOL F/U PLAN DOC DISPOSITION & COMMUNICATION FOLLOW UP 3 WEEKS ELECTRONICALLY SIGNED BY SARA ASHRAF MD ON 11/24/2016 AT 12:18 PM EDT DISCLAIMER : THIS IS A VISIT SUMMARY EXTRACTED FROM THE [employer] CHART. IT IS NOT A COPY OF THE [employer] PROGRESS NOTE. PATRICIO
== END ==
LOC: M PAIN 12:40
PROVIDERS: ATTEND Anesthesiology
DX: Z09 Encounter for follow-up examination after completed treatment for conditions other than malignant neoplasm (principal); M51.16 Intervertebral disc disorders with radiculopathy, lumbar region; M51.17 Intervertebral disc disorders with radiculopathy, lumbosacral region; K21.9 Gastro-esophageal reflux disease without esophagitis; Z79.1 Long term (current) use of non-steroidal anti-inflammatories (NSAID); Z79.891 Long term (current) use of opiate analgesic; Z79.899 Other long term (current) drug therapy

== ENCOUNTER → 2016-12-12 | Outpatient (CLI) | payer OTHER ==
--- NOTE | 2016-12-22 00:08 | ECWPNPC ---
PATIENT NAME: KRISTA SHOOK : 1980 GENDER: MALE VISIT DATE: 12/12/2016 DISCHARGE DATE: 12/12/16 1507 VISIT LOCKED DATE TIME: PHYSICIAN: SARA ASHRAF RESOURCE: SARA ASHRAF REASON FOR APPOINTMENT 1. LOW BACK PAIN HISTORY OF PRESENT ILLNESS HISTORY OF PRESENT ILLNESS: PAIN THE PATIENT DESCRIBES THE PAIN... 36 YEAR OLD MALE PATIENT WITH HISTORY OF CHRONIC LOW BACK PAIN. PATIENT DESCRIBES THE PAIN ACHING, SHARP, STABBING, SHOOTING, AND HAVING IT ALL THE TIME WITH A PAIN SCORE OF 7/10. PATIENT RECEIVED A DCS ON 10/13/16 AND STATES THAT HIS LEG PAIN IS COMPLETELY GONE BUT HE IS STILL HAVING LOWER BACK PAIN. PATIENT IS CURRENTLY USING IBUPROFEN, TRAMADOL, VOLTAREN GEL, AND OXYCODONE NEEDED. PATIENT STATES THAT HE IS USING THE MEDICATION ONLY NEEDED AND IT HELPS KEEP HIM FUNCTIONAL AND MOBILE. PATIENT DENIES UNEXPLAINABLE WEIGHT LOSS, FEVER, CHILLS, NEW CHANGES ON HIS URINARY OR BOWEL CONTROL. FALL RISK SCREENING: SCREENING :NO FALLS IN THE PAST YEAR CURRENT MEDICATIONS TAKING VOLTAREN 25 MG TABLET DELAYED RELEASE 1 TABLET ORALLY TWICE DAILY NEEDED TAKING IBUPROFEN 800 MG TABLET 1 TABLET NEEDED ORALLY TWICE DAILY NEEDED TAKING TRAMADOL HCL 50 MG TABLET 1 TABLET NEEDED ORALLY (CODE D FOR CHRONIC PAIN) EVERY 8 HRS FOR PAIN MDD2 TAKING OXYCODONE HCL 5 MG TABLET 1 TABLET ORALLY (CODE D CHRONIC PAIN) EVERY 6 HRS PRN FOR PAIN MDD1 NOT-TAKING CYCLOBENZAPRINE HCL 10 MG TABLET 1 TABLET ORALLY THREE TIMES A DAY MEDICATION LIST REVIEWED AND RECONCILED WITH THE PATIENT PAST MEDICAL HISTORY GERD ALLERGIES SULFA (FOR ALLERGY USE ONLY): HIVES: ALLERGY SURGICAL HISTORY APPENDECTOMY AUG 2013 DCS TRIAL 09/15/16 DCS PERMANENT 10/14/16 FAMILY HISTORY NO FAMILY HISTORY DOCUMENTED. SOCIAL HISTORY GENERAL: PAIN CLINIC PFS, CLERGY, PUBLIC HEALTH REFERRALS CLERGY REFERRAL NEEDED?NO WAS THE PROVIDER NOTIFIED OF ANY PERTINENT INFO?YES PFS REFERRAL NEEDED?NO PUBLIC HEALTH REFERRAL NEEDED?NO PATIENT: ____. HOSPITALIZATION/MAJOR DIAGNOSTIC PROCEDURE NO HOSPITALIZATION HISTORY. REVIEW OF SYSTEMS CONSTITUTIONAL: ANY CHANGE IN YOUR MEDICAL CONDITION? NO . CHILLS NO . FEVER NO . INFECTION: DO YOU HAVE NEW INFECTIONS? NO . DO YOU HAVE HISTORY OF MRSA? NO . MUSCULOSKELETAL: ANY NEW PATTERNS OF PAIN OR NUMBNESS? NO . GASTROENTEROLOGY: ANY NEW CHANGE IN BOWEL CONTROL? NO . GENITOURINARY: ANY NEW CHANGE IN BLADDER CONTROL? NO . IS THERE A CHANCE YOU COULD BE ? NO . HEMATOLOGY/LYMPH: DO YOU TAKE ANY BLOOD THINNERS? (FOR EXAMPLE- COUMADIN, PLAVIX, AGGRENOX, PLATEL, PRADAXA, OR XARELTO) NO . WHEN WAS YOUR LAST DOSE? DATE: TIME: . NEUROLOGY: HAVE YOU FALLEN IN THE PAST 6 MONTHS? NO . ANY NEW EXTREMITY NUMBNESS OR WEAKNESS? NO . CARDIOLOGY: DO YOU HAVE A PACEMAKER OR DEFIBRILLATOR? NO . RESPIRATORY: HAVE YOU BEEN SICK IN THE PAST WEEK? NO . FEVER NO . FLU LIKE SYMPTOMS? NO . COUGH NO . INTEGUMENTARY: DO YOU HAVE ANY RASHES OR OPEN SORES? NO . ALLERGIC/IMMUNO: ARE YOU ALLERGIC TO SHELLFISH OR IV DYE? NO . ANY NEW ALLERGIES? NO . PSYCHIATRIC: DO YOU HAVE THOUGHTS OF HURTING YOURSELF OR SOMEONE ELSE? NO . ARE YOU ABUSED, NEGLECTED, OR IN AN UNSAFE ENVIRONMENT? NO . ENDOCRINOLOGY: ARE YOU DIABETIC? NO . OTHER: DO YOU NEED ANY PRESCRIPTIONS? NO . IF YES, PLEASE LIST: ____ . ANY NEW PROBLEMS WITH YOUR MEDICATIONS? NO . WHEN DID YOU LAST EAT? ____ . WHEN DID YOU LAST DRINK? ____ . WHAT DID YOU LAST DRINK? ____ . NAME OF PERSON DRIVING YOU HOME? ____ . DO YOU HAVE ANY OTHER QUESTIONS OR CONCERNS NO . REVIEWED BY: PROVIDER: SARA ASHRAF MD . VITAL SIGNS WT 215.0 LBS, HT 73 IN, BMI 28.36 INDEX, BP 140/80 MM HG, HR 74 /MIN, RR 16 /MIN, TEMP 96.9 F, OXYGEN SAT % 96%, NA INITIALS TL 1402, REVIEWED BY: NL. ASSESSMENTS INTERVERTEBRAL DISC DISORDERS WITH RADICULOPATHY, LUMBAR REGION - M51.16 (PRIMARY) INTERVERTEBRAL DISC DISORDERS WITH RADICULOPATHY, LUMBOSACRAL REGION - M51.17 TREATMENT INTERVERTEBRAL DISC DISORDERS WITH RADICULOPATHY, LUMBAR REGION REFILL OXYCODONE HCL TABLET, 5 MG, 1 TABLET, ORALLY (CODE D CHRONIC PAIN), EVERY 6 HRS PRN FOR PAIN MDD1, 90 DAYS, 50, REFILLS 0 REFILL TRAMADOL HCL TABLET, 50 MG, 1 TABLET NEEDED, ORALLY (CODE D FOR CHRONIC PAIN), EVERY 8 HRS FOR PAIN MDD2, 90 DAYS, 80, REFILLS 0 NOTES: WE DISCUSSED SEVERAL ISSUES WITH MR. SHOOK'S PAIN MANAGEMENT CASE. AT THIS TIME THE PATIENT WILL CONTINUE WITH THE SAME MEDICATION REGIME BEFORE. PATIENT DENIES ABUSE OF ANY MEDICATION, DENIES USE OF ILLEGAL SUBSTANCES, AND STATES THAT HE IS ONLY USING THE MEDICATION FOR PAIN MANAGEMENT. I WOULD LIKE TO SEE THE PATIENT UNDER X-RAY TO SEE IF THERE WAS ANY LEAD MOVEMENT FROM THE DCS. I WOULD LIKE TO HAVE ONE MORE IMAGE OF THE LEADS BEFORE THE PATIENT MOVES OUT OF STATE. PATIENT SPOKE WITH RANDY COSTA, FROM [employer] ABOUT ADJUSTMENTS AT TODAY'S VISIT. INSTRUCTIONS WERE GIVEN, QUESTIONS WERE ANSWERED, PATIENT REPORTS UNDERSTANDING AND AGREES WITH THE PLAN. I, LADI BERNARDO, DOCUMENTED THE ABOVE INFORMATION ACTING A SCRIBE FOR DR. ASHRAF. I HAVE REVIEWED THE ABOVE DOCUMENT, WRITTEN BY LADI BERNARDO SCRIBDilshad AND I VERIFY THAT IT IS ACCURATE. PROCEDURE CODES FA211 ESTABILISHED PATIENT [facility] CHARGE DISPOSITION & COMMUNICATION FOLLOW UP 2 WEEKS ELECTRONICALLY SIGNED BY SARA ASHRAF MD ON 12/21/2016 AT 05:45 PM EDT DISCLAIMER : THIS IS A VISIT SUMMARY EXTRACTED FROM THE [employer] CHART. IT IS NOT A COPY OF THE [employer] PROGRESS NOTE. PATRICIO
== END ==
LOC: M PAIN 13:40
PROVIDERS: ATTEND Anesthesiology
DX: G89.29 Other chronic pain (principal); M51.16 Intervertebral disc disorders with radiculopathy, lumbar region; M51.17 Intervertebral disc disorders with radiculopathy, lumbosacral region; K21.9 Gastro-esophageal reflux disease without esophagitis; Z79.891 Long term (current) use of opiate analgesic; Z79.1 Long term (current) use of non-steroidal anti-inflammatories (NSAID); Z79.899 Other long term (current) drug therapy; Z88.2 Allergy status to sulfonamides

== ENCOUNTER → 2016-12-19 | Outpatient (CLI) | payer OTHER ==
[~2016-12-19] MED LIST changes: +CONRAY-43 43% 50ML VIAL (Q9960) As Ordered ONE
--- NOTE | 2016-12-19 09:51 | REP ---
CT ARTHROGRAM RIGHT SHOULDER: Following arthrogram procedure, CT arthrogram is performed in the axial plane with sagittal, coronal, oblique reconstruction images. The visualized osseous structures are intact. There is no evidence of acute fracture or dislocation. The acromioclavicular joint appears relatively well aligned. However underlying ligamentous abnormality cannot completely be excluded. No rotator cuff tendon tear is seen. No SLAP tear is seen. The anterior and posterior as well as inferior labrum appear somewhat blunted but no discrete tear is seen. There is focal cartilaginous thinning of the superior glenoid cartilage somewhat posteriorly. Biceps tendon is seen within the bicipital groove. No gross abnormality is seen at the biceps labral complex. IMPRESSION: No fracture or dislocation. No rotator cuff tear. No discrete labral tear although there is blunting of anterior and posterior as well as inferior labrum. This may be developmental. Focal cartilaginous thinning is noted in the superior/posterior glenoid cartilage. Signed by Gurvinder Frausto MD 12/19/2016 05:16 P
--- NOTE | 2016-12-19 17:20 | REP ---
Procedure: Right shoulder arthrogram The procedure was performed under the direct supervision of Dr. Frausto. History: Right shoulder pain The benefits and risks including but not limited to pain, infection, bleeding and anaphylaxis were explained to the patient and informed consent was obtained. Technique: The right glenohumeral joint space was localized using fluoroscopic guidance. The skin was prepped and draped in a sterile fashion. 1% lidocaine was used as a local anesthetic. Using fluoroscopic guidance a 22 gauge spinal needle was inserted and advanced into the joint. 11 ml of Conray 43 was injected to verify placement. The needle was removed and the patient was taken to CAT scan for postprocedural imaging. The the patient tolerated the procedure well and there were no immediate complications. 1 second of fluoro time was utilized for this procedure. Reviewed by ANA Hendricks 12/19/2016 08:46 ASigned by Gurvinder Frausto MD 12/19/2016 05:08 P
== END ==
LOC: M RADPRO 07:34
PROVIDERS: ATTEND Physician Assistant
DX: S49.91XA Unspecified injury of right shoulder and upper arm, initial encounter (principal); X58.XXXA Exposure to other specified factors, initial encounter; Y92.89 Other specified places as the place of occurrence of the external cause; Y93.89 Activity, other specified; Y99.8 Other external cause status
CPT/HCPCS: 23350; 73201; 77002; Q9960

== ENCOUNTER → 2016-12-22 | Outpatient (CLI) | payer OTHER ==
[~2016-12-22] MED LIST changes: -CONRAY-43 43% 50ML VIAL (Q9960) As Ordered ONE
--- NOTE | 2016-12-22 17:44 | REP ---
Partial thoracic spine series: Two views: History: Dorsal column stimulator lead placement. 12 seconds of fluoroscopy time is reported. Findings: A sequence of two fluoroscopically obtained intraprocedural spot radiographs of the thoracic spine document dorsal column stimulator lead placement. Signed by Willian Ayala MD 12/22/2016 06:21 P
--- NOTE | 2017-01-06 00:45 | ECWPNPC ---
PATIENT NAME: KRISTA SHOOK : 1980 GENDER: MALE VISIT DATE: 12/22/2016 DISCHARGE DATE: 12/22/16922 VISIT LOCKED DATE TIME: PHYSICIAN: SARA ASHRAF RESOURCE: SARA ASHRAF REASON FOR APPOINTMENT 1. X-RAY FOR DCS PLACEMENT CURRENT MEDICATIONS TAKING OXYCODONE HCL 5 MG TABLET 1 TABLET ORALLY (CODE D CHRONIC PAIN) EVERY 6 HRS PRN FOR PAIN MDD1 TAKING TRAMADOL HCL 50 MG TABLET 1 TABLET NEEDED ORALLY (CODE D FOR CHRONIC PAIN) EVERY 8 HRS FOR PAIN MDD2 TAKING VOLTAREN 25 MG TABLET DELAYED RELEASE 1 TABLET ORALLY TWICE DAILY NEEDED TAKING IBUPROFEN 800 MG TABLET 1 TABLET NEEDED ORALLY TWICE DAILY NEEDED NOT-TAKING CYCLOBENZAPRINE HCL 10 MG TABLET 1 TABLET ORALLY THREE TIMES A DAY MEDICATION LIST REVIEWED AND RECONCILED WITH THE PATIENT PAST MEDICAL HISTORY GERD ALLERGIES SULFA (FOR ALLERGY USE ONLY): HIVES: ALLERGY VITAL SIGNS WT 215 LBS, HT 73 IN, BMI 28.36 INDEX, BP 129/77 MM HG, HR 70 /MIN, RR 16 /MIN, TEMP 97.0 F, OXYGEN SAT % 96%, NA INITIALS SC 08:56, REVIEWED BY: LS. ASSESSMENTS INTERVERTEBRAL DISC DISORDERS WITH RADICULOPATHY, LUMBAR REGION - M51.16 (PRIMARY) TREATMENT INTERVERTEBRAL DISC DISORDERS WITH RADICULOPATHY, LUMBAR REGION NOTES: PRE PROCEDURE DIAGNOSIS: LUMBAR INTERVERTEBRAL DISC DISORDER WITH RADICULOPATHY POST PROCEDURE: LUMBAR INTERVERTEBRAL DISC DISORDER WITH RADICULOPATHY PROCEDURE: STUDY UNDER X-RAY SURGEON: DR. SARA ASHRAF. PUNCH PRESS OPERATOR: NONE.ANESTHESIA: NONE PRE PROCEDURE NOTE THE PATIENT HAS A HISTORY OF CHRONIC PAIN AT THE LOW BACK AREA. I EVALUATE THE PATIENT AND REVIEWED THE CHART. 36 YEAR OLD MALE PATIENT WITH HISTORY OF CHRONIC LOW BACK AND LEG PAIN THAT HAS DCS IMPLANT. THE PATIENT DENIES UNEXPLAINABLE WEIGHT LOSS, FEVER, CHILLS, OR NEW CHANGES IN URINARY OR BOWEL CONTROL. THERE ARE SOME CONCERNS OF THE POSSIBLE LEAD MIGRATION. STUDY UNDER FLUORO WILL BE DONE TO CHECK LEAD POSITION. DESCRIPTION OF PROCEDURE THE PATIENT WAS BROUGHT TO THE PROCEDURE ROOM AND PLACED IN THE PRONE POSITION. PATIENT WAS EXAMINED UNDER X-RAY TO VIEW THE LEADS FROM THE DCS PLACEMENT. [employer] REPRESENTATIVES HAD QUESTIONS ON WHETHER THE LEADS HAD MIGRATED. AFTER VIEWING THE PATIENT THE LEADS HAVE NOT MIGRATED. LEAD POSITION AT 7,8, AND 9 PER DONE AT THE IMPLANT. POST PROCEDURE NOTE: THE PATIENT WILL BE SEEN IN A FOLLOW UP IN THE NEXT FEW WEEKS. INFORMATION OF THIS STUDY WILL BE SHARED WITH THE [facility], [facility] REPRESENTATIVES. INSTRUCTIONS WERE GIVEN, QUESTIONS WERE ANSWERED, AND THE PATIENT EXPRESSED UNDERSTANDING AND AGREES WITH THE PLANI, LADI BERNARDO, DOCUMENTED THE ABOVE INFORMATION ACTING A SCRIBE FOR DR. ASHRAF. I HAVE REVIEWED THE ABOVE DOCUMENT, WRITTEN BY LADI BERNARDO SCRIBDilshad AND I VERIFY THAT IT IS ACCURATE. DIAGNOSTIC IMAGING [facility] FLUORO GUIDANCE (PAIN)[id number] DISPOSITION & COMMUNICATION FOLLOW UP 2 WEEKS ELECTRONICALLY SIGNED BY SARA ASHRAF MD ON 01/05/2017 AT 06:19 PM EDT DISCLAIMER : THIS IS A VISIT SUMMARY EXTRACTED FROM THE [email or web address] CHART. IT IS NOT A COPY OF THE [email or web address] PROGRESS NOTE. MTDJanet
== END | disposition home or self-care (01) ==
LOC: M PAIN 08:30
PROVIDERS: ATTEND Anesthesiology
DX: G89.29 Other chronic pain (principal); M51.16 Intervertebral disc disorders with radiculopathy, lumbar region; K21.9 Gastro-esophageal reflux disease without esophagitis; Z79.899 Other long term (current) drug therapy; Z88.2 Allergy status to sulfonamides
CPT/HCPCS: 76000; G0463

== ENCOUNTER → 2017-01-16 | Outpatient (CLI) | payer OTHER ==
--- NOTE | 2017-01-27 00:47 | ECWPNPC ---
PATIENT NAME: KRISTA SHOOK : 1980 GENDER: MALE VISIT DATE: 01/16/2017 DISCHARGE DATE: 01/16/17 1033 VISIT LOCKED DATE TIME: PHYSICIAN: SARA ASHRAF RESOURCE: SARA ASHRAF REASON FOR APPOINTMENT 1. DCS FOLLOW UP HISTORY OF PRESENT ILLNESS HISTORY OF PRESENT ILLNESS: PAIN THE PATIENT DESCRIBES THE PAIN... 36 YEAR OLD MALE PATIENT WITH HISTORY OF CHRONIC BACK PAIN. PATIENT DESCRIBES THE PAIN ACHING, SHARP, STABBING, THROBBING, SHOOTING, AND HAVING IT ALL THE TIME WITH A PAIN SCORE OF 7/10 ON TODAY'S VISIT. PATIENT STATES THAT THE DCS IS HELPING WITH THE RADIATING PAIN DOWN HIS LEGS, BUT NOT HELPING WITH THE PAIN IN HIS BACK. PATIENT STATES HE FEELS THE SENSATION DOWN THE LEGS FROM HIS DCS. PATIENT STATES THAT IN ABOUT A MONTH HE IS MOVING DOWN TO [place]. PATIENT REPORTS OXYCODONE HELPS HIM TO SLEEP AT NIGHT ALONG WITH THE COMBINATION OF THE OTHER MEDICATIONS. PATIENT STATES THAT LAST TIME HE WAS HERE HE WAS UNABLE TO GET THE OXYCODONE DUE TO THE PHARMACY NOT RECEIVING THE SCRIPT. PATIENT DENIES UNEXPLAINABLE WEIGHT LOSS, FEVER, CHILLS, NEW CHANGES ON HIS URINARY OR BOWEL CONTROL. FALL RISK SCREENING: SCREENING :NO FALLS IN THE PAST YEAR CURRENT MEDICATIONS TAKING OXYCODONE HCL 5 MG TABLET 1 TABLET ORALLY (CODE D CHRONIC PAIN) EVERY 6 HRS PRN FOR PAIN MDD1 TAKING TRAMADOL HCL 50 MG TABLET 1 TABLET NEEDED ORALLY (CODE D FOR CHRONIC PAIN) EVERY 8 HRS FOR PAIN MDD2 TAKING VOLTAREN 25 MG TABLET DELAYED RELEASE 1 TABLET ORALLY TWICE DAILY NEEDED TAKING IBUPROFEN 800 MG TABLET 1 TABLET NEEDED ORALLY TWICE DAILY NEEDED NOT-TAKING CYCLOBENZAPRINE HCL 10 MG TABLET 1 TABLET ORALLY THREE TIMES A DAY MEDICATION LIST REVIEWED AND RECONCILED WITH THE PATIENT PAST MEDICAL HISTORY GERD LOW BACK PAIN ALLERGIES SULFA (FOR ALLERGY USE ONLY): HIVES: ALLERGY SURGICAL HISTORY APPENDECTOMY AUG 2013 DCS TRIAL 09/15/16 DCS PERMANENT 10/14/16 FAMILY HISTORY NO FAMILY HISTORY DOCUMENTED. SOCIAL HISTORY GENERAL: PAIN CLINIC PFS, CLERGY, PUBLIC HEALTH REFERRALS CLERGY REFERRAL NEEDED?NO WAS THE PROVIDER NOTIFIED OF ANY PERTINENT INFO?YES PFS REFERRAL NEEDED?NO PUBLIC HEALTH REFERRAL NEEDED?NO PATIENT: ____. HOSPITALIZATION/MAJOR DIAGNOSTIC PROCEDURE NO HOSPITALIZATION HISTORY. REVIEW OF SYSTEMS CONSTITUTIONAL: ANY CHANGE IN YOUR MEDICAL CONDITION? NO . CHILLS NO . FEVER NO . INFECTION: DO YOU HAVE NEW INFECTIONS? NO . DO YOU HAVE HISTORY OF MRSA? NO . MUSCULOSKELETAL: ANY NEW PATTERNS OF PAIN OR NUMBNESS? NO . GASTROENTEROLOGY: ANY NEW CHANGE IN BOWEL CONTROL? NO . GENITOURINARY: ANY NEW CHANGE IN BLADDER CONTROL? NO . IS THERE A CHANCE YOU COULD BE ? NO . HEMATOLOGY/LYMPH: DO YOU TAKE ANY BLOOD THINNERS? (FOR EXAMPLE- COUMADIN, PLAVIX, AGGRENOX, PLATEL, PRADAXA, OR XARELTO) NO . WHEN WAS YOUR LAST DOSE? DATE: TIME: . NEUROLOGY: HAVE YOU FALLEN IN THE PAST 6 MONTHS? NO . ANY NEW EXTREMITY NUMBNESS OR WEAKNESS? NO . CARDIOLOGY: DO YOU HAVE A PACEMAKER OR DEFIBRILLATOR? NO . RESPIRATORY: HAVE YOU BEEN SICK IN THE PAST WEEK? NO . FEVER NO . FLU LIKE SYMPTOMS? NO . COUGH NO . INTEGUMENTARY: DO YOU HAVE ANY RASHES OR OPEN SORES? NO . ALLERGIC/IMMUNO: ARE YOU ALLERGIC TO SHELLFISH OR IV DYE? NO . ANY NEW ALLERGIES? NO . PSYCHIATRIC: DO YOU HAVE THOUGHTS OF HURTING YOURSELF OR SOMEONE ELSE? NO . ARE YOU ABUSED, NEGLECTED, OR IN AN UNSAFE ENVIRONMENT? NO . ENDOCRINOLOGY: ARE YOU DIABETIC? NO . OTHER: DO YOU NEED ANY PRESCRIPTIONS? YES . IF YES, PLEASE LIST: OXYCODONE . ANY NEW PROBLEMS WITH YOUR MEDICATIONS? NO . WHEN DID YOU LAST EAT? ____ . WHEN DID YOU LAST DRINK? ____ . WHAT DID YOU LAST DRINK? ____ . NAME OF PERSON DRIVING YOU HOME? ____ . DO YOU HAVE ANY OTHER QUESTIONS OR CONCERNS NO . REVIEWED BY: PROVIDER: SARA ASHRAF MD . VITAL SIGNS WT 215 LBS, HT 73 IN, BMI 28.36 INDEX, BP 114/74 MM HG, HR 67 /MIN, RR 16 /MIN, TEMP 97.4 F, OXYGEN SAT % 96%, NA INITIALS SC 09:35, REVIEWED BY: AD. EXAMINATION : PATIENT IS ALERT O X 3 AND COOPERATIVE. ASSESSMENTS INTERVERTEBRAL DISC DISORDERS WITH RADICULOPATHY, LUMBAR REGION - M51.16 (PRIMARY) TREATMENT INTERVERTEBRAL DISC DISORDERS WITH RADICULOPATHY, LUMBAR REGION REFILL OXYCODONE HCL TABLET, 5 MG, 1 TABLET, ORALLY (CODE D CHRONIC PAIN), EVERY 6 HRS PRN FOR PAIN MDD1, 90 DAYS, 50, REFILLS 0 REFILL TRAMADOL HCL TABLET, 50 MG, 1 TABLET NEEDED, ORALLY (CODE D FOR CHRONIC PAIN), EVERY 8 HRS FOR PAIN MDD2, 90 DAYS, 80, REFILLS 0 NOTES: WE DISCUSSED SEVERAL ISSUES WITH MR. SHOOK'S PAIN MANAGEMENT CASE. AT THIS TIME THE PATIENT WILL CONTINUE WITH THE SAME MEDICATION REGIME BEFORE. PATIENT DENIES ABUSE OF ANY MEDICATION, DENIES USE OF ILLEGAL SUBSTANCES, AND STATES THAT HE IS ONLY USING THE MEDICATION FOR PAIN MANAGEMENT. I DISCUSSED WITH THE PATIENT THAT HE CAN SIGN A RELEASE OF MEDICAL INFORMATION THAT WAY WE CAN SEND HIS MEDICATION RECORDS TO THE NEXT PROVIDER WHO WILL BE TREATING HIM. I DISCUSSED WITH THE PATIENT THAT HE CAN CALL US NEEDED. INSTRUCTIONS WERE GIVEN, QUESTIONS WERE ANSWERED, PATIENT REPORTS UNDERSTANDING AND AGREES WITH THE PLAN. I, HARISH MARTINES, DOCUMENTED THE ABOVE INFORMATION ACTING A SCRIBE FOR DR. ASHRAF. I HAVE REVIEWED THE ABOVE DOCUMENT, WRITTEN BY HARISH MARTINES SCRIBDilshad AND I VERIFY THAT IT IS ACCURATE. PROCEDURE CODES FA211 ESTABILISHED PATIENT [facility] CHARGE G8730 PAIN ASSESS POS TOOL F/U PLAN DOC G8427 DOC MEDS VERIFIED W/PT OR RE DISPOSITION & COMMUNICATION FOLLOW UP PRN ELECTRONICALLY SIGNED BY SARA ASHRAF MD ON 01/26/2017 AT 07:50 PM EDT DISCLAIMER : THIS IS A VISIT SUMMARY EXTRACTED FROM THE [employer] CHART. IT IS NOT A COPY OF THE [employer] PROGRESS NOTE. MTDD
== END ==
LOC: M PAIN 09:00
PROVIDERS: ATTEND Anesthesiology
DX: G89.29 Other chronic pain (principal); M51.16 Intervertebral disc disorders with radiculopathy, lumbar region; K21.9 Gastro-esophageal reflux disease without esophagitis; Z79.891 Long term (current) use of opiate analgesic; Z79.1 Long term (current) use of non-steroidal anti-inflammatories (NSAID); Z79.899 Other long term (current) drug therapy; Z88.2 Allergy status to sulfonamides

== ENCOUNTER → 2017-03-04 | Outpatient (CLI) | payer OTHER ==
[~2017-03-04] MED LIST changes: +CEPH500C PO; +IBUP1TAB7 PO; -IBUP200C PO; +IBUP200C10 PO; -IBUP800T23 PO; +MOBI4TAB PO; -MOBI7.5T10 PO; +OXYC-517 PO
--- NOTE | 2017-03-17 00:35 | ECWPNPC ---
PATIENT NAME: KRISTA SHOOK : 1980 GENDER: MALE VISIT DATE: 03/04/2017 DISCHARGE DATE: 03/04/17 0948 VISIT LOCKED DATE TIME: PHYSICIAN: SARA ASHRAF RESOURCE: SARA ASHRAF REASON FOR APPOINTMENT 1. DCS REMOVAL HISTORY OF PRESENT ILLNESS HISTORY OF PRESENT ILLNESS: PAIN THE PATIENT DESCRIBES THE PAIN... 36 YEAR OLD MALE PATIENT WITH HISTORY OF CHRONIC BACK PAIN. PATIENT DESCRIBES THE PAIN ACHING, SHARP, STABBING, THROBBING, SHOOTING, AND HAVING IT ALL THE TIME WITH A PAIN SCORE OF 7/10 ON TODAY'S VISIT. PATIENT STATES THAT THE DCS IS HELPING WITH THE RADIATING PAIN DOWN HIS LEGS, BUT NOT HELPING WITH THE PAIN IN HIS BACK. PATIENT STATES HE FEELS THE SENSATION DOWN THE LEGS FROM HIS DCS. PATIENT STATES THAT IN ABOUT A MONTH HE IS MOVING DOWN TO [place]. PATIENT REPORTS OXYCODONE HELPS HIM TO SLEEP AT NIGHT ALONG WITH THE COMBINATION OF THE OTHER MEDICATIONS. PATIENT STATES THAT LAST TIME HE WAS HERE HE WAS UNABLE TO GET THE OXYCODONE DUE TO THE PHARMACY NOT RECEIVING THE SCRIPT. PATIENT DENIES UNEXPLAINABLE WEIGHT LOSS, FEVER, CHILLS, NEW CHANGES ON HIS URINARY OR BOWEL CONTROL. FALL RISK SCREENING: SCREENING :NO FALLS IN THE PAST YEAR CURRENT MEDICATIONS TAKING OXYCODONE HCL 5 MG TABLET 1 TABLET ORALLY (CODE D CHRONIC PAIN) EVERY 6 HRS PRN FOR PAIN MDD1 TAKING TRAMADOL HCL 50 MG TABLET 1 TABLET NEEDED ORALLY (CODE D FOR CHRONIC PAIN) EVERY 8 HRS FOR PAIN MDD2 TAKING VOLTAREN 25 MG TABLET DELAYED RELEASE 1 TABLET ORALLY TWICE DAILY NEEDED TAKING IBUPROFEN 800 MG TABLET 1 TABLET NEEDED ORALLY TWICE DAILY NEEDED NOT-TAKING CYCLOBENZAPRINE HCL 10 MG TABLET 1 TABLET ORALLY THREE TIMES A DAY MEDICATION LIST REVIEWED AND RECONCILED WITH THE PATIENT PAST MEDICAL HISTORY GERD LOW BACK PAIN ALLERGIES SULFA (FOR ALLERGY USE ONLY): HIVES: ALLERGY SURGICAL HISTORY APPENDECTOMY AUG 2013 DCS TRIAL 09/15/16 DCS PERMANENT 10/14/16 REVIEW OF SYSTEMS REVIEWED BY: PROVIDER: . CONSTITUTIONAL: ANY CHANGE IN YOUR MEDICAL CONDITION? NO . CHILLS NO . FEVER NO . INFECTION: DO YOU HAVE NEW INFECTIONS? NO . DO YOU HAVE HISTORY OF MRSA? NO . MUSCULOSKELETAL: ANY NEW PATTERNS OF PAIN OR NUMBNESS? NO . GASTROENTEROLOGY: ANY NEW CHANGE IN BOWEL CONTROL? NO . GENITOURINARY: ANY NEW CHANGE IN BLADDER CONTROL? NO . IS THERE A CHANCE YOU COULD BE ? NO . HEMATOLOGY/LYMPH: DO YOU TAKE ANY BLOOD THINNERS? (FOR EXAMPLE- COUMADIN, PLAVIX, AGGRENOX, PLATEL, PRADAXA, OR XARELTO) NO . WHEN WAS YOUR LAST DOSE? DATE: TIME: . NEUROLOGY: HAVE YOU FALLEN IN THE PAST 6 MONTHS? NO . ANY NEW EXTREMITY NUMBNESS OR WEAKNESS? NO . CARDIOLOGY: DO YOU HAVE A PACEMAKER OR DEFIBRILLATOR? NO . RESPIRATORY: HAVE YOU BEEN SICK IN THE PAST WEEK? NO . FEVER NO . FLU LIKE SYMPTOMS? NO . COUGH NO . INTEGUMENTARY: DO YOU HAVE ANY RASHES OR OPEN SORES? NO . ALLERGIC/IMMUNO: ARE YOU ALLERGIC TO SHELLFISH OR IV DYE? NO . ANY NEW ALLERGIES? NO . PSYCHIATRIC: DO YOU HAVE THOUGHTS OF HURTING YOURSELF OR SOMEONE ELSE? NO . ARE YOU ABUSED, NEGLECTED, OR IN AN UNSAFE ENVIRONMENT? NO . ENDOCRINOLOGY: ARE YOU DIABETIC? NO . OTHER: DO YOU NEED ANY PRESCRIPTIONS? NO . IF YES, PLEASE LIST: ____ . ANY NEW PROBLEMS WITH YOUR MEDICATIONS? NO . WHEN DID YOU LAST EAT? ____ . WHEN DID YOU LAST DRINK? ____ . WHAT DID YOU LAST DRINK? ____ . NAME OF PERSON DRIVING YOU HOME? ____ . DO YOU HAVE ANY OTHER QUESTIONS OR CONCERNS NO . VITAL SIGNS WT 220 LBS, HT 73 IN, BMI 28.36 INDEX, BP 135/77 MM HG, HR 69 /MIN, RR 16 /MIN, TEMP 96.1 F, OXYGEN SAT % 97%, NA INITIALS SC 09:03, REVIEWED BY: AD. EXAMINATION : PATIENT IS ALERT O X 3 AND COOPERATIVE. THERE IS TENDERNESS IN THE LOWER BACK AND THE PARASPINAL MUSCLE GROUP SPECIALLY ON THE RIGHT SIDE. LEFT LEG IS A LITTLE WEAKER THEN THE RIGHT AT FLEXION. MRI OF THE LUMBOSACRAL SPINE DONE ON 08/20/2015 IS SHOWING FACET ARTHROPATHY CHANGES SPINAL STENOSIS THIS EXTRUSION AT L5-S1. ASSESSMENTS INTERVERTEBRAL DISC DISORDERS WITH RADICULOPATHY, LUMBAR REGION - M51.16 (PRIMARY) INTERVERTEBRAL DISC DISORDERS WITH RADICULOPATHY, LUMBOSACRAL REGION - M51.17 TREATMENT OTHERS NOTES: WE DISCUSSED SEVERAL ISSUES WITH MR. SHOOK'S PAIN MANAGEMENT CASE. AT THIS TIME I WOULD LIKE TO REFER THE PATIENT TO FARIHA HE FOR A CONSULT OF THE REMOVAL OF THE DCS. PATIENT REPORTS NOT GETTING THE RELIEF FROM THE DCS HE BELIEVED HE WOULD HAVE. MR. SHOOK IS CONSIDERING MOVING FORWARD WITH BACK SURGERY BUT WOULD LIKE TO HAVE THE DEVICE REMOVED TO HAVE UPDATED MRI'S. I HAVE TODAY A LONG CONVERSATION WITH KRISTA ABOUT THIS ISSUE AND HAVE AGREED IN REQUESTING AUTHORIZATION FOR THE REMOVAL OF THE DEVICE. I WAS WITH HIM OVER 20 MINUTES TODAY MORE THAN HAVE OF THE TIME DISCUSSING THIS ISSUE AND DISCUSSING ALTERNATIVES IN THE CASE. WE WENT THROUGH THE TRIAL PROCESS AND EXPECTATIONS. WE HAVE AGREED WITH KRISTA ON REMOVING THE DEVICE. INSTRUCTIONS WERE GIVEN, QUESTIONS WERE ANSWERED, PATIENT REPORTS UNDERSTANDING AND AGREES WITH THE PLAN. I, LADI BERNARDO, DOCUMENTED THE ABOVE INFORMATION ACTING A SCRIBE FOR DR. ASHRAF. I HAVE REVIEWED THE ABOVE DOCUMENT, WRITTEN BY LADI MEMBRENO AND I VERIFY THAT IT IS ACCURATE. PROCEDURE CODES FA211 ESTABILISHED PATIENT [facility] CHARGE G8427 DOC MEDS VERIFIED W/PT OR RE G8730 PAIN ASSESS POS TOOL F/U PLAN DOC DISPOSITION & COMMUNICATION FOLLOW UP 1 WEEK ELECTRONICALLY SIGNED BY SARA ASHRAF MD ON 03/16/2017 AT 12:27 PM EDT DISCLAIMER : THIS IS A VISIT SUMMARY EXTRACTED FROM THE [employer] CHART. IT IS NOT A COPY OF THE [employer] PROGRESS NOTE. PATRICIO
== END ==
LOC: M PAIN 08:30
PROVIDERS: ATTEND Anesthesiology
DX: G89.29 Other chronic pain (principal); M51.16 Intervertebral disc disorders with radiculopathy, lumbar region; M51.17 Intervertebral disc disorders with radiculopathy, lumbosacral region; K21.9 Gastro-esophageal reflux disease without esophagitis; Z79.891 Long term (current) use of opiate analgesic; Z79.1 Long term (current) use of non-steroidal anti-inflammatories (NSAID); Z79.899 Other long term (current) drug therapy; Z88.2 Allergy status to sulfonamides

== ENCOUNTER → 2017-03-16 | Outpatient (CLI) | payer OTHER ==
--- NOTE | 2017-04-01 00:57 | ECWPNPC ---
PATIENT NAME: KRISTA SHOOK : 1980 GENDER: MALE VISIT DATE: 03/16/2017 DISCHARGE DATE: 03/16/17 1435 VISIT LOCKED DATE TIME: PHYSICIAN: SARA ASHRAF RESOURCE: SARA ASHRAF REASON FOR APPOINTMENT 1. LOW BACK PAIN HISTORY OF PRESENT ILLNESS HISTORY OF PRESENT ILLNESS: PAIN THE PATIENT DESCRIBES THE PAIN... 37 YEAR OLD MALE PATIENT WITH HISTORY OF CHRONIC BACK PAIN. PATIENT DESCRIBES THE PAIN ACHING, SHARP, STABBING, THROBBING, SHOOTING, AND HAVING IT ALL THE TIME WITH A PAIN SCORE OF 7/10 ON TODAY'S VISIT. PATIENT STATES THAT THE DCS IS NOT AIDING THE PATIENT IN GOOD BACK RELIEF AND IS CONSIDERING A SURGERY AND WOULD LIKE THE DEVICE REMOVED FOR MRI'S. CURRENTLY THE PATIENT IS USING OXYCODONE AND TRAMADOL AND STATES THAT THE MEDICATION AIDS IN PAIN RELIEF. PATIENT DENIES UNEXPLAINABLE WEIGHT LOSS, FEVER, CHILLS, NEW CHANGES ON HIS URINARY OR BOWEL CONTROL. PATIENT DENIES UNEXPLAINABLE WEIGHT LOSS, FEVER, CHILLS, NEW CHANGES ON HIS URINARY OR BOWEL CONTROL. FALL RISK SCREENING: SCREENING :NO FALLS IN THE PAST YEAR CURRENT MEDICATIONS TAKING OXYCODONE HCL 5 MG TABLET 1 TABLET ORALLY (CODE D CHRONIC PAIN) EVERY 6 HRS PRN FOR PAIN MDD1 TAKING TRAMADOL HCL 50 MG TABLET 1 TABLET NEEDED ORALLY (CODE D FOR CHRONIC PAIN) EVERY 8 HRS FOR PAIN MDD2 TAKING VOLTAREN 25 MG TABLET DELAYED RELEASE 1 TABLET ORALLY TWICE DAILY NEEDED TAKING IBUPROFEN 800 MG TABLET 1 TABLET NEEDED ORALLY TWICE DAILY NEEDED NOT-TAKING CYCLOBENZAPRINE HCL 10 MG TABLET 1 TABLET ORALLY THREE TIMES A DAY MEDICATION LIST REVIEWED AND RECONCILED WITH THE PATIENT PAST MEDICAL HISTORY GERD LOW BACK PAIN ALLERGIES SULFA (FOR ALLERGY USE ONLY): HIVES: ALLERGY SURGICAL HISTORY APPENDECTOMY AUG 2013 DCS TRIAL 09/15/16 DCS PERMANENT 10/14/16 SOCIAL HISTORY GENERAL: TOBACCO USE ARE YOU A:NONSMOKER JEWISH [id number] JEWISH LEARNING BARRIERS / SPECIAL NEEDS CHANGE FROM LAST VISIT?NO BARRIERS TO LEARNING?NO HEARING IMPAIRED?NO VISION IMPAIRED?NO COGNITIVELY IMPAIRED?NO READINESS TO LEARN?YES LEARNING PREFERENCES?NO LEARNING CAPABILITIES PRESENT?YES EMOTIONAL BARRIERS?NO SPECIAL DEVICES?NO CRM FUNCTIONAL ANALYST NEEDED?NO PAIN CLINIC PFS, CLERGY, PUBLIC HEALTH REFERRALS HAS THE PATIENT BEEN EDUCATED REGARDING HIS/HER PLAN OF CARE?YES HAS THE PATIENT BEEN EDUCATED REGARDING PAIN, THE RISK FOR PAIN, THE IMPORTANCE OF EFFECTIVE PAIN MANAGEMENT, AND THE PAIN ASSESSMENT PROCESS?YES PATIENT: ____. ADVANCE DIRECTIVES HEALTH CARE PROXY?NO WOULD YOU LIKE MORE INFORMATION?NO DO YOU HAVE A DNR?NO WOULD YOU LIKE MORE INFORMATION?NO LIVING WILL?NO WOULD YOU LIKE MORE INFORMATION?NO POWER OF FIELD ADMINISTRATOR?NO WOULD YOU LIKE MORE INFORMATION?NO HOSPITALIZATION/MAJOR DIAGNOSTIC PROCEDURE SURGERIES REVIEW OF SYSTEMS REVIEWED BY: PROVIDER: SARA ASHRAF MD . CONSTITUTIONAL: ANY CHANGE IN YOUR MEDICAL CONDITION? NO . CHILLS NO . FEVER NO . INFECTION: DO YOU HAVE NEW INFECTIONS? NO . DO YOU HAVE HISTORY OF MRSA? NO . MUSCULOSKELETAL: ANY NEW PATTERNS OF PAIN OR NUMBNESS? NO . GASTROENTEROLOGY: ANY NEW CHANGE IN BOWEL CONTROL? NO . GENITOURINARY: ANY NEW CHANGE IN BLADDER CONTROL? NO . IS THERE A CHANCE YOU COULD BE ? NO . HEMATOLOGY/LYMPH: DO YOU TAKE ANY BLOOD THINNERS? (FOR EXAMPLE- COUMADIN, PLAVIX, AGGRENOX, PLATEL, PRADAXA, OR XARELTO) NO . WHEN WAS YOUR LAST DOSE? DATE: TIME: . NEUROLOGY: HAVE YOU FALLEN IN THE PAST 6 MONTHS? NO . ANY NEW EXTREMITY NUMBNESS OR WEAKNESS? NO . CARDIOLOGY: DO YOU HAVE A PACEMAKER OR DEFIBRILLATOR? NO . RESPIRATORY: HAVE YOU BEEN SICK IN THE PAST WEEK? NO . FEVER NO . FLU LIKE SYMPTOMS? NO . COUGH NO . INTEGUMENTARY: DO YOU HAVE ANY RASHES OR OPEN SORES? NO . ALLERGIC/IMMUNO: ARE YOU ALLERGIC TO SHELLFISH OR IV DYE? NO . ANY NEW ALLERGIES? NO . PSYCHIATRIC: DO YOU HAVE THOUGHTS OF HURTING YOURSELF OR SOMEONE ELSE? NO . ARE YOU ABUSED, NEGLECTED, OR IN AN UNSAFE ENVIRONMENT? NO . ENDOCRINOLOGY: ARE YOU DIABETIC? NO . OTHER: DO YOU NEED ANY PRESCRIPTIONS? NO . IF YES, PLEASE LIST: ____ . ANY NEW PROBLEMS WITH YOUR MEDICATIONS? NO . WHEN DID YOU LAST EAT? ____ . WHEN DID YOU LAST DRINK? ____ . WHAT DID YOU LAST DRINK? ____ . NAME OF PERSON DRIVING YOU HOME? ____ . DO YOU HAVE ANY OTHER QUESTIONS OR CONCERNS NO . VITAL SIGNS WT 220 LBS, HT 73 IN, BMI 29.02 INDEX, BP 122/69 MM HG, HR 69 /MIN, RR 16 /MIN, TEMP 98.0 F, OXYGEN SAT % 97%, NA INITIALS SC 14:13, REVIEWED BY: LS. EXAMINATION : PATIENT IS ALERT O X 3 AND COOPERATIVE. THERE IS TENDERNESS IN THE LOWER BACK AND THE PARASPINAL MUSCLE GROUP SPECIALLY ON THE RIGHT SIDE. LEFT LEG IS A LITTLE WEAKER THEN THE RIGHT AT FLEXION. MRI OF THE LUMBOSACRAL SPINE DONE ON 08/20/2015 IS SHOWING FACET ARTHROPATHY CHANGES SPINAL STENOSIS THIS EXTRUSION AT L5-S1. 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 SHOOK'S PAIN MANAGEMENT CASE. AT THIS TIME THE PATIENT WILL BE REFERRED TO THE NEUROSURGEON FOR THE SURGICAL CONSULTS TO THE HAVE THE DCS REMOVED. PATIENT WOULD LIKE TO PROCEED WITH A BACK SURGERY AND WOULD LIKE THE DEVICE REMOVED TO GET MRI'S. PATIENT WILL RECEIVE A 90 DAY SUPPLY OF MEDICATION DUE TO THE PATIENT MOVING TO [place]. PATIENT DENIES ABUSE OF ANY MEDICATION, DENIES USE OF ILLEGAL SUBSTANCES, AND STATES HE IS ONLY USING THE MEDICATION FOR PAIN MANAGEMENT. PATIENT WILL PERFORM A URINE TOXICOLOGY TODAY. PATIENT WILL CALL NEEDED. INSTRUCTIONS WERE GIVEN, QUESTIONS WERE ANSWERED, PATIENT REPORTS UNDERSTANDING AND AGREES WITH THE PLAN. I, LADI BERNARDO, DOCUMENTED THE ABOVE INFORMATION ACTING A SCRIBE FOR DR. ASHRAF. I HAVE REVIEWED THE ABOVE DOCUMENT, WRITTEN BY LADI MEMBRENO AND I VERIFY THAT IT IS ACCURATE. PROCEDURE CODES G8427 DOC MEDS VERIFIED W/PT OR RE G8730 PAIN ASSESS POS TOOL F/U PLAN DOC FA211 ESTABILISHED PATIENT [facility] CHARGE DISPOSITION & COMMUNICATION FOLLOW UP CALL NEEDED ELECTRONICALLY SIGNED BY SARA ASHRAF MD ON 03/31/2017 AT 06:39 PM EDT DISCLAIMER : THIS IS A VISIT SUMMARY EXTRACTED FROM THE [employer] CHART. IT IS NOT A COPY OF THE [employer] PROGRESS NOTE. PATRICIO
== END ==
LOC: M PAIN 14:20
PROVIDERS: ATTEND Anesthesiology
DX: M51.16 Intervertebral disc disorders with radiculopathy, lumbar region (principal); M51.17 Intervertebral disc disorders with radiculopathy, lumbosacral region; M54.5 Low back pain; G89.29 Other chronic pain; Z79.891 Long term (current) use of opiate analgesic; Z79.899 Other long term (current) drug therapy; Z88.2 Allergy status to sulfonamides

== ENCOUNTER → 2017-03-17 | Outpatient (CLI) | payer OTHER ==
--- NOTE | 2017-03-17 11:40 | REP ---
CT THORACIC SPINE WITHOUT CONTRAST: HISTORY: Back pain. There is no acute fracture or subluxation. There is no disc bulge or herniation. The spinal canal and the neural foramina are patent. Dorsal column stimulators are present in the spinal canal with the tips at the level of the T6-7 intervertebral disc. The stimulators end the spinal canal at the T12-L1 level. IMPRESSION: 1. There is no disc bulge or herniation. 2. Dorsal column stimulators are present in the spinal canal with the tips at the level of the T6-7 intervertebral disc. Signed by Conrado Almeida MD 03/17/2017 11:41 A
== END ==
LOC: M RAD 10:30
PROVIDERS: ATTEND Physician Assistant
DX: M54.2 Cervicalgia (principal)

== ENCOUNTER → 2017-03-20 | Outpatient (CLI) | payer OTHER ==
--- NOTE | 2017-03-20 09:29 | REP ---
PA and lateral chest: There are no comparisons. The lung garza are clear. Cardiac size is normal. The meghna, mediastinum, and bony thorax are unremarkable. There is a spinal stimulator in the mid and lower thoracic area. There is mild thoracic scoliosis. Impression: No acute cardiopulmonary findings. Mild thoracic scoliosis. Spinal stimulator. Signed by Gurvinder Brown MD 03/20/2017 09:19 A
--- NOTE | 2017-03-20 13:02 | ECGEPIP ---
Stationary ECG Study [facility] Test Date: 2017-03-20 Pat Name: KRISTA SHOOK Department: Room: - Gender: M Carpet Installation Specialist: : [id number] Requested By: CLAIRE Jaramillo PA-C Order Number: [id number] Reading MD: Jarrett Garcia Measurements Intervals [place] Rate: 57 P: 53 MO: 196 QRS: 80 QRSD: 103 T: 52 QT: 403 QTc: 394 Interpretive Statements SINUS BRADYCARDIA WITH SINUS ARRHYTHMIA POSSIBLE RIGHT VENTRICULAR CONDUCTION DELAY Within normal limits for age Electronically Signed On 03-20-2017 13:02:10 EDT by Jarrett Garcia
== END ==
LOC: M EKG 08:29
PROVIDERS: ATTEND Physician Assistant
DX: M54.5 Low back pain (principal)

== ENCOUNTER → 2017-03-20 | Outpatient (CLI) | payer OTHER ==
[2017-03-20 09:37] LABS: BASO % 0.6 % (0.0-1.0); EOS # 0.1 K/mm3 (0.0-0.50); EOS % 1.6 % (0.0-3.0); LARGE UNSTAINED CELL # 0.1 K/mm3 (0.0-0.4); LARGE UNSTAINED CELL % 2.8 % (0.0-4.0); LYMPH # 1.8 K/mm3 (1.5-4.5); LYMPH % 35.5 % (24.0-44.0); MEAN CORPUSCULAR HEMOGLOBIN 31.3 pg (27.0-33.0); MEAN CORPUSCULAR HGB CONC 36.1 g/dl (32.0-36.5); MEAN CORPUSCULAR VOLUME 86.6 fl (80.0-96.0); MONO # 0.5 K/mm3 (0.0-0.8); MONO % 8.8 % (0.0-5.0); NEUTROPHILS # 2.6 K/mm3 (1.8-7.7); NEUTROPHILS % 50.7 % (36.0-66.0); PLATELET COUNT, AUTOMATED 207 k/mm3 (150-450); RED CELL DISTRIBUTION WIDTH 12.5 % (11.5-14.5); WHITE BLOOD COUNT 5.1 K/mm3 (4.0-10.0)
[2017-03-20 09:46] LABS: INR 0.93
[2017-03-20 10:02] LABS: ALBUMIN 4.2 GM/DL (3.2-5.2); ALBUMIN/GLOBULIN RATIO 1.45 (1.00-1.93); ALKALINE PHOSPHATASE 72 U/L (45-117); ALT/SGPT 33 U/L (12-78); ANION GAP 7 MEQ/L (8-16); AST/SGOT 18 U/L (15-37); BILIRUBIN,TOTAL 0.4 MG/DL (0.2-1.0); BLOOD UREA NITROGEN 18 MG/DL (7-18); CARBON DIOXIDE LEVEL 29 MEQ/L (21-32); CHLORIDE LEVEL 107 MEQ/L (98-107); CREATININE FOR GFR 1.22 MG/DL (0.70-1.30); GLOMERULAR FILTRATION RATE > 60.0 (>60); GLUCOSE, FASTING 105 MG/DL (70-105); POTASSIUM SERUM 4.4 MEQ/L (3.5-5.1); SODIUM LEVEL 143 MEQ/L (136-145); TOTAL PROTEIN 7.1 GM/DL (6.4-8.2)
== END ==
LOC: M LAB 08:25
PROVIDERS: ATTEND Neurological Surgery
DX: Z01.818 Encounter for other preprocedural examination (principal)

== ENCOUNTER 2017-03-25 13:52 | Day surgery (SDC) | payer OTHER ==
[~2017-03-25] VITALS: Ht 182.9 cm; Wt 103.0 kg
[~2017-03-25 13:52] MED LIST changes: -CEPH500C PO; +LIDOCAINE 2% INJ 100 MG/5 ML SDV (FOR ANES.) As Ordered ONE; +MIDAZOLAM INJ 2 MG/2 ML VIAL (J2250) As Ordered ONE; +PROPOFOL 200 MG/20 ML VIAL As Ordered ONE; +fentaNYL 100 MCG/2 ML INJECTION (J3010) As Ordered ONE
[2017-03-25] MEDS ORDERED: LIDOCAINE 1% MDV 20ML VIAL SQ ONE (14:15)
[2017-03-25] MEDS ORDERED: LR 1,000 ML IV ONE (14:15)
[2017-03-25] MEDS ORDERED: SCOPOLAMINE 1.5 MG TRANSDERMAL As Ordered ONE (16:32)
[2017-03-25] MEDS ORDERED: LR 1,000 ML IV SCH ×2 (16:45→21:45)
[2017-03-25] MEDS ORDERED: SCOPOLAMINE 1.5 MG TRANSDERMAL TOP SCH (16:45)
[2017-03-25] MEDS ORDERED: PROPOFOL 200 MG/20 ML VIAL As Ordered ONE (18:25)
[2017-03-25] MEDS ORDERED: ROCURONIUM BROMIDE 50 MG/5 ML VIAL/SYRINGE As Ordered ONE (18:25)
[2017-03-25] MEDS ORDERED: fentaNYL 100 MCG/2 ML INJECTION (J3010) As Ordered ONE ×3 (18:25→21:34)
[2017-03-25] MEDS ORDERED: MIDAZOLAM INJ 2 MG/2 ML VIAL (J2250) As Ordered ONE (18:25)
[2017-03-25] MEDS ORDERED: LIDOCAINE 2% INJ 100 MG/5 ML SDV (FOR ANES.) As Ordered ONE (18:25)
[2017-03-25] MEDS ORDERED: LIDOCAINE W/EPINEPHRINE 1% 20ML VIAL As Ordered ONE (18:28)
[2017-03-25] MEDS ORDERED: BACITRACIN PWD 50,000 UNITS VIAL As Ordered ONE (18:28)
[2017-03-25] MEDS ORDERED: THROMBIN SOLN 20,000 UNITS KIT As Ordered ONE (18:28)
[2017-03-25] MEDS ORDERED: dexameTHASONE 4 MG/ML 1ML VIAL (J1100) As Ordered ONE (19:57)
[2017-03-25] MEDS ORDERED: NEOSTIGMINE 1MG/ML 5 ML SYRINGE (J2710) As Ordered ONE (20:40)
[2017-03-25] MEDS ORDERED: GLYCOPYRROLATE INJ 0.2 MG/ML 2 ML VIAL As Ordered ONE (20:40)
[2017-03-25] MEDS ORDERED: ONDANSETRON 4MG/2ML VIAL (J2405) As Ordered ONE (20:40)
[2017-03-25] MEDS ORDERED: PERCOCET 5MG/325MG TAB As Ordered ONE (21:33)
[2017-03-25] MEDS: fentaNYL 100 MCG/2 ML INJECTION (J3010) IV PRN ×3 (21:38→22:20)
[2017-03-25] MEDS ORDERED: ONDANSETRON 4MG/2ML VIAL (J2405) IV PRN ×2 (21:45→23:30)
[2017-03-25] MEDS ORDERED: KCL 20MEQ IN D5/NS 1000ML 1,000 ML IV SCH (21:45)
[2017-03-25] MEDS: PERCOCET 5MG/325MG TAB PO PRN ×2 (21:54→22:22)
[2017-03-25 22:54] VITALS: BP 167/81
[2017-03-25 23:24] VITALS: BP 161/86
[2017-03-25] MEDS ORDERED: MORPHINE 4 MG/ML 1ML SYRINGE IV PRN (23:30)
[2017-03-26 00:24] VITALS: BP 135/79
[2017-03-26] MEDS: ACETAMINOPHEN TAB 650MG DOSE (2X325MG) PO SCH ×3 (00:37→05:00)
[2017-03-26 01:24] VITALS: BP 140/83
[2017-03-26 02:24] VITALS: BP 140/66
[2017-03-26 03:24] VITALS: BP 120/56
[2017-03-26] MEDS ORDERED: ceFAZolin SOD 1 GM in D5W MINI-BAG PLUS 50 ML IV SCH (04:00)
[2017-03-26 08:00] VITALS: BP 113/64
--- NOTE | 2017-03-26 08:57 | ROOPDOC ---
[facility] Report Of Operation Report of Operation DATE OF SURGERY: 03/25/2017 SURGEON: Dr. Heladio Marie WET PRIMER POWDER BLENDER: None PREOPERATIVE DIAGNOSIS: SCS electrode removal POSTOPERATIVE DIAGNOSIS: Same PROCEDURE PERFORMED: 1. SCS system removal. ANESTHESIA: GETA. ESTIMATED BLOOD LOSS: 10 cc. FINDINGS : SCS system; no infection. DRAINS: 0 COMPLICATIONS: None. DISPOSITION: Stable to the PACU. INDICATIONS FOR THE PROCEDURE HISTORY: Mr. Delgado is a 37 y/o M with past medical history of low back and leg pain, which was treated by implantation of spinal cord stimulator (SCS) by . Recently he lost previous pain control and want to remove hardware in order to consider other surgical options for his condition. SURGICAL RISKS: The patient and her family were well apprised of all objectives, benefits, risks and potential complications of the procedure, including but not limited to : worsening of current status, the possible need for further procedures, the risk of infection, headaches, CSF leak, possible spinal nerve injury resulting in paralysis, infection, injury to major vessels causing hemorrhage, stroke, loss of language function, coma and even . No assurance was given whether symptoms would improve following the procedure. The surgery is technically difficult procedure and despite the significant discomfort for the patient and the best effort of the physician, the surgery may be unsuccessful or may need to be aborted. Informed consent was obtained and secured in the chart after the patient and family voiced understanding of these risks and decided to proceed with the operation. DESCRIPTION OF THE PROCEDURE The patient was transferred to the operating room. He was given preoperative prophylactic IV antibiotics. ANESTHESIA: The patient was sedated and intubated without difficulty by the anesthesia service. Eyes were taped shut after ointment was applied to prevent corneal abrasion. A Franklyn Hugger was placed over the upper body to maintain control of core body temperature. POSITIONING: The patient was turned prone on gel pads of Tonny table. All pressure points were carefully padded. OPERATIVE TECHNIQUE: The patient was prepped and draped in the standard sterile fashion. Previous surgical scar in midline was excised and electrodes anchors were dissected from scar tissue, stay sutures were cut, and wire electrodes pulled out spinal canal without any difficulty. Second surgical scar in right flank were excised and IPG, connectors and leads have been removed without difficulty. IPG was disconnected from lead and removed. Hemostasis was meticulously achieved. The wounds were copiously irrigated with antibiotic saline solution. Subcutaneous tissue and skin was approximated with 1.0 Stratofix suture. The skin was then approximated with Monocryl suture and sealed with Dermabond. All sponge counts, needle counts and instrument counts were correct at the end of the case times two. The patient tolerated the procedure well, without any complications and was transferred in stable condition to the recovery room. HELADIO MARIE MD Mar 26, 2017 08:57
[2017-03-26] MEDS ORDERED: CEPH500C PO (09:13)
--- NOTE | 2017-03-26 17:40 | IPNPDOC ---
Date Seen The patient was seen on 03/26/17. Progress Note NEUROSURGERY SUBJECTIVE: Mr. Delgado is a pleasant 37-year-old male who is a day at 1 postop of having removal of the paddle lead dorsal column stimulator by Dr. Marie. He states he is feeling well today and offers no complaints. OBJECTIVE PHYSICAL EXAMINATION: VITAL SIGNS: Please see below. GENERAL: He is sitting comfortably. Well-nourished and developed. Appears to be in no acute distress. CARDIOVASCULAR: Rate is regular. RESPIRATORY: He is breathing comfortably. EXTREMITIES: Moving all 4 extremities well. SKIN: Linear incision located over the thoracic region and horizontal incision located over the right lower back. Edges of the wound are closed and covered with Dermabond. There is no erythema, significant swelling, or discharge. LABORATORY DATA: Please see below. MICROBIOLOGY: Please see below. ASSESSMENT: Improving. PLAN: Per Dr. Marie he will be discharged today. He will follow up with the pain clinic to assess his incision. He is scheduled for a dentist appointment today at noon and would like to leave sooner. He has been receiving Ancef IV. He is scheduled to have 2 more doses of IV Ancef this morning prior to discharge. Will send him home with a short course of Keflex to cover him prophylactically and stop the IV Ancef. Wound instructions have been discussed with him. VS, I&O, 24H, Fishbone Vital Signs/I&O Vital Signs Date Time Temp Pulse Resp B/P (MAP) Pulse Ox O2 Delivery O2 Flow Rate FiO2 03/26/17 09:00 Room Air 03/26/17 08:00 99.4 94 16 113/64 (80) 98 I&O- Last 24 Hours up to 6 AM 03/26/17 06:00 Intake Total 1370 ml Output Total 5 ml Balance 1365 ml JHONNY REGALADO PA-C Mar 26, 2017 17:40
== END 2017-03-26 10:20 | disposition home or self-care (01) ==
LOC: M SDC 13:52 → M MS5PR 22:35 → M SDC 03-26 10:20
PROVIDERS: ATTEND Neurological Surgery
DX: T85.118A Breakdown (mechanical) of other implanted electronic stimulator of nervous system, initial encounter (principal); Y75.2 Prosthetic and other implants, materials and neurological devices associated with adverse incidents; M54.5 Low back pain
CPT/HCPCS: 63661; 63688; 96366; J0690; J1100; J2250; J2405; J2710; J3010